=== PATIENT | male | born 1945 | race African-American/Black ===

== ENCOUNTER 2016-11-11 08:05 | Day surgery (SDC) | payer MEDICARE ==
[~2016-11-11 08:05] MED LIST: PROPOFOL INJ 200 MG/20 ML VIAL IV ONE
[2016-11-11 10:48] VITALS: BP 124/87
[2016-11-11] MEDS ORDERED: PROPOFOL INJ 200 MG/20 ML VIAL IV ONE (10:59)
--- NOTE | 2016-11-11 12:31 | Operative Report ---
Operative Report DATE OF SURGERY: 11/11/16 Operative Report: The risks benefits and alternatives of the procedure explained to the patient in detail and informed consent is obtained that GIF Olympus video scope was inserted into the patient's mouth and hypopharynx the esophagus is identified intubated and insufflated the scope was then advanced through the esophagus stomach and duodenum retroflexion maneuver is done the esophagus stomach and first and second portions of the duodenum examined PREOPERATIVE DIAGNOSIS: Known history of Noble's esophagus with dysplasia. Hiatal hernia. Gastric polyp. POSTOPERATIVE DIAGNOSIS: Inflammatory gastric polyp removed via snare polypectomy. Several areas of Noble's esophagus that is ablated. Hiatal hernia. OPERATION: EGD with ablation. EGD with snare polypectomy SURGEON: EAGLE WING ANESTHESIA: LMAC TISSUE REMOVED OR ALTERED: Gastric polyp removed. COMPLICATIONS: None. ESTIMATED BLOOD LOSS: none. INTRAOPERATIVE FINDINGS: Large hiatal hernia. Noble's that require ablation. Gastric polypectomy of the polyp. PROCEDURE: Patient tolerated the procedure well. No immediate postprocedure complications are noted. Patient is discharged in good condition. He will need a follow-up endoscopy in 6 weeks to document eradication of his Noble's. He is instructed to go the emergency room to any further problems or questions. He does have a 2-3 follow-up to discuss findings. Date of discharge 11/11/2016. Discharge diet: Regular. Discharge activity: Regular. He may potentially require surgery for his hiatal hernia.
== END 2016-11-11 10:50 | disposition home or self-care (01) ==
LOC: END 08:05
PROVIDERS: ATTEND Internal Medicine Gastroenterology
PROC: 0DB68ZX Excision of Stomach, Via Natural or Artificial Opening Endoscopic, Diagnostic (ICD-10-PCS; principal; 2016-11-11 10:00)
PROC: 0D558ZZ Destruction of Esophagus, Via Natural or Artificial Opening Endoscopic (ICD-10-PCS; 2016-11-11 10:00)
DX: K22.719 Barrett's esophagus with dysplasia, unspecified (principal); K44.9 Diaphragmatic hernia without obstruction or gangrene; K21.9 Gastro-esophageal reflux disease without esophagitis; E78.5 Hyperlipidemia, unspecified; I10 Essential (primary) hypertension; E03.9 Hypothyroidism, unspecified; M10.9 Gout, unspecified; D64.9 Anemia, unspecified; J30.2 Other seasonal allergic rhinitis; Z88.0 Allergy status to penicillin; Z88.6 Allergy status to analgesic agent; Z79.899 Other long term (current) drug therapy
CPT/HCPCS: 43270; 88305 ×2; J2704; 43251; 740

== ENCOUNTER → 2017-02-08 | Outpatient (CLI) | payer MEDICARE ==
[2017-02-08 09:28] LABS: ALANINE AMINOTRANSFERASE 22 U/L (21-72); ALBUMIN 4.3 g/dL (3.5-5.0); ALKALINE PHOSPHATASE 81 U/L (38-126); ASPARTATE AMINO TRANSFERASE 24 U/L (17-59); BILIRUBIN,DIRECT 0.2 mg/dL (0.0-0.4); BILIRUBIN,TOTAL 0.6 mg/dL (0.2-1.3); CHOLESTEROL 150.99 mg/dL (0-200); Direct HDL 44 mg/dL (>40); TOTAL PROTEIN 8.2 g/dL (6.3-8.2); TRIGLYCERIDES 132 mg/dL (<150)
[2017-02-08 09:39] LABS: DIRECT LDL 53 mg/dL (<100)
== END ==
LOC: OD 08:18
PROVIDERS: ATTEND Specialist
DX: R00.2 Palpitations (principal); R01.1 Cardiac murmur, unspecified; I10 Essential (primary) hypertension; E78.5 Hyperlipidemia, unspecified; R55 Syncope and collapse; Z79.899 Other long term (current) drug therapy; K21.9 Gastro-esophageal reflux disease without esophagitis; E03.9 Hypothyroidism, unspecified; I36.1 Nonrheumatic tricuspid (valve) insufficiency; I27.2 Other secondary pulmonary hypertension; Z86.79 Personal history of other diseases of the circulatory system
CPT/HCPCS: 36415; 80061; 80076

== ENCOUNTER 2017-05-31 10:15 | Day surgery (SDC) | payer MEDICARE ==
[2017-05-31 13:11] VITALS: BP 128/88
--- NOTE | 2017-05-31 13:55 | Operative Report ---
Operative Report DATE OF SURGERY: 05/31/17 Operative Report: The risks benefits and alternatives of the procedure explained to the patient in detail and informed consent is obtained. A GIF Olympus video scope was inserted into the patient's mouth and hypopharynx, the esophagus is identified intubated and insufflated, the scope was then advanced through the esophagus stomach and duodenum, retroflexion maneuver is done, the esophagus stomach and first and second portions of the duodenum examined PREOPERATIVE DIAGNOSIS: Gastroesophageal reflux disease. Previous removal of gastric polyp. No history of Noble's esophagus. POSTOPERATIVE DIAGNOSIS: Gastritis status post biopsy. Hiatal hernia. Noble' s esophagus status post treatment with HALO ablative therapy. OPERATION: EGD with ablation. EGD with biopsy SURGEON: EAGLE WING ANESTHESIA: LMAC TISSUE REMOVED OR ALTERED: As described above. COMPLICATIONS: None. ESTIMATED BLOOD LOSS: None. INTRAOPERATIVE FINDINGS: As described above. PROCEDURE: Patient tolerated the procedure well. No immediate postprocedure complications are noted. Patient discharged in good condition. Discharge date 05/31/2017. Discharge diet: Regular. Discharge activity: Regular. 2-3 week follow-up to discuss findings. Patient is instructed to call the office or proceed to the emergency room should there be any further problems or questions. We will wait on pathology.
== END 2017-05-31 13:15 | disposition home or self-care (01) ==
LOC: END 10:15
PROVIDERS: ATTEND Internal Medicine Gastroenterology
PROC: 0DB68ZX Excision of Stomach, Via Natural or Artificial Opening Endoscopic, Diagnostic (ICD-10-PCS; principal; 2017-05-31 13:30)
PROC: 0D558ZZ Destruction of Esophagus, Via Natural or Artificial Opening Endoscopic (ICD-10-PCS; 2017-05-31 13:30)
DX: K22.719 Barrett's esophagus with dysplasia, unspecified (principal); K21.9 Gastro-esophageal reflux disease without esophagitis; K29.50 Unspecified chronic gastritis without bleeding; B96.81 Helicobacter pylori [H. pylori] as the cause of diseases classified elsewhere; K44.9 Diaphragmatic hernia without obstruction or gangrene; I10 Essential (primary) hypertension; E78.5 Hyperlipidemia, unspecified; E03.9 Hypothyroidism, unspecified; D64.9 Anemia, unspecified; M10.9 Gout, unspecified; Z79.899 Other long term (current) drug therapy
CPT/HCPCS: 43270; 43239; 88342 ×2; 88305 ×2; J2704; 740

== ENCOUNTER → 2017-06-18 | Outpatient (CLI) | payer MEDICARE ==
[2017-06-18 08:28] LABS: ALANINE AMINOTRANSFERASE 25 U/L (21-72); ALBUMIN 4.3 g/dL (3.5-5.0); ALKALINE PHOSPHATASE 78 U/L (38-126); ASPARTATE AMINO TRANSFERASE 21 U/L (17-59); BILIRUBIN,DIRECT 0.3 mg/dL (0.0-0.4); BILIRUBIN,TOTAL 0.6 mg/dL (0.2-1.3); CHOLESTEROL 129.38 mg/dL (0-200); Direct HDL 44 mg/dL (>40); TOTAL PROTEIN 8.4 g/dL (6.3-8.2); TRIGLYCERIDES 110 mg/dL (<150)
[2017-06-18 08:39] LABS: DIRECT LDL 43 mg/dL (<100)
== END ==
LOC: OD 07:10
PROVIDERS: ATTEND Specialist
DX: R00.2 Palpitations (principal); R01.1 Cardiac murmur, unspecified; I10 Essential (primary) hypertension; Z86.79 Personal history of other diseases of the circulatory system; R55 Syncope and collapse; E78.5 Hyperlipidemia, unspecified; K21.9 Gastro-esophageal reflux disease without esophagitis; E03.9 Hypothyroidism, unspecified; I27.2 Other secondary pulmonary hypertension; I36.1 Nonrheumatic tricuspid (valve) insufficiency; Z79.899 Other long term (current) drug therapy
CPT/HCPCS: 36415; 80061; 80076

== ENCOUNTER → 2018-01-19 | Outpatient (CLI) | payer MEDICARE ==
[2018-01-19 08:33] LABS: ALANINE AMINOTRANSFERASE 29 U/L (21-72); ALBUMIN 4.4 g/dL (3.5-5.0); ALKALINE PHOSPHATASE 75 U/L (38-126); ASPARTATE AMINO TRANSFERASE 23 U/L (17-59); BILIRUBIN,DIRECT 0.2 mg/dL (0.0-0.4); BILIRUBIN,TOTAL 0.4 mg/dL (0.2-1.3); CHOLESTEROL 135.63 mg/dL (0-200); TOTAL PROTEIN 8.4 g/dL (6.3-8.2); TRIGLYCERIDES 112 mg/dL (<150)
[2018-01-19 08:45] LABS: DIRECT LDL 49 mg/dL (<100)
== END ==
LOC: OD 07:30
PROVIDERS: ATTEND Specialist
DX: E78.5 Hyperlipidemia, unspecified (principal); I10 Essential (primary) hypertension; R00.2 Palpitations; R01.1 Cardiac murmur, unspecified; R55 Syncope and collapse; E03.9 Hypothyroidism, unspecified; K21.9 Gastro-esophageal reflux disease without esophagitis; I36.1 Nonrheumatic tricuspid (valve) insufficiency; Z79.899 Other long term (current) drug therapy; Z86.79 Personal history of other diseases of the circulatory system
CPT/HCPCS: 36415; 80061; 80076

== ENCOUNTER → 2018-05-20 | Outpatient (CLI) | payer MEDICARE ==
--- NOTE | 2018-05-20 11:15 | RADIOLOGY REPORT (SQ) ---
EXAM DESCRIPTION: CHEST PA/LATERAL COMPLETED DATE/TIME: 05/20/2018 11:04 am REASON FOR STUDY: BODY MASS INDEX (BMI) 25.0-25.9, ADULT COMPARISON: None. EXAM PARAMETERS: NUMBER OF VIEWS: two views TECHNIQUE: Digital Frontal and Lateral radiographic views of the chest acquired. RADIATION DOSE: NA LIMITATIONS: none FINDINGS: LUNGS AND PLEURA: Fairly extensive bilateral airspace densities are identified left greate r than right most consistent with pneumonic infiltrates. I would recommend followup films to complet e clearing to exclude an underlying process. No pleural effusions are identified. No pneumothorax i s seen. MEDIASTINUM AND HILAR STRUCTURES: No masses or contour abnormalities. HEART AND VASCULAR STRUCTURES: Cardiac silhouette is within normal limits for size. Tortuous thoraci c aorta is identified. BONES: No acute findings. HARDWARE: None in the chest. OTHER: No other significant finding. IMPRESSION: Bilateral airspace densities as noted above most consistent with pneumonic infiltrates. I would recommend followup films to complete clearing to exclude an underlying process. Other findi ngs as noted above. TECHNICAL DOCUMENTATION: JOB ID: [id number] [employer]- All Rights Reserved Reading location - IP/workstation name: [email or web address]
== END ==
LOC: OD 10:45
PROVIDERS: ATTEND Internal Medicine
DX: J98.4 Other disorders of lung (principal); Z68.25 Body mass index [BMI] 25.0-25.9, adult
CPT/HCPCS: 71046

== ENCOUNTER → 2018-05-21 | Outpatient (CLI) | payer MEDICARE ==
[2018-05-21 09:36] LABS: ABSOLUTE EOSINOPHILS # (AUTO) 0.3 10^3/uL (0.0-0.6); ABSOLUTE LYMPHOCYTES (AUTO) 2.6 10^3/uL (0.5-4.7); ABSOLUTE MONOCYTES (AUTO) 0.7 10^3/uL (0.1-1.4); ABSOLUTE NEUT (AUTO) 2.9 10^3/uL (1.7-8.2); BASOPHILS % (AUTO) 0.6 % (0-2); EOSINOPHILS % (AUTO) 3.9 % (0-6); HEMATOCRIT 38.5 % (37.9-51.0); HEMOGLOBIN 12.9 g/dL (13.5-17.0); LYMPHOCYTES % (AUTO) 40.1 % (13-45); MEAN CORPUSCULAR HEMOGLOBIN 26.5 pg (27.0-33.4); MEAN CORPUSCULAR HGB CONC 33.5 g/dL (32.0-36.0); MEAN CORPUSCULAR VOLUME 79 fl (80-97); MONOCYTES % (AUTO) 11.4 % (3-13); PLATELET COUNT 200 10^3/uL (150-450); RED BLOOD COUNT 4.85 10^6/uL (4.35-5.55); RED CELL DISTRIBUTION WIDTH 15.1 % (11.5-14.0); TOTAL CELLS COUNTED % (AUTO) 100 %; WHITE BLOOD COUNT 6.6 10^3/uL (4.0-10.5)
[2018-05-21 09:43] LABS: ALANINE AMINOTRANSFERASE 21 U/L (21-72); ALBUMIN 4.3 g/dL (3.5-5.0); ALKALINE PHOSPHATASE 73 U/L (38-126); ANION GAP 15 (5-19); ASPARTATE AMINO TRANSFERASE 23 U/L (17-59); BILIRUBIN,DIRECT 0.4 mg/dL (0.0-0.4); BILIRUBIN,TOTAL 0.6 mg/dL (0.2-1.3); BLOOD UREA NITROGEN 13 mg/dL (7-20); CALCIUM 9.5 mg/dL (8.4-10.2); CARBON DIOXIDE 26 mmol/L (22-30); CHLORIDE 106 mmol/L (98-107); CHOLESTEROL 133.55 mg/dL (0-200); GLUCOSE 97 mg/dL (75-110); POTASSIUM 4.4 mmol/L (3.6-5.0); SODIUM 147.2 mmol/L (137-145); TOTAL PROTEIN 9.1 g/dL (6.3-8.2); TRIGLYCERIDES 120 mg/dL (<150); URIC ACID 8.1 mg/dL (3.5-8.5)
[2018-05-21 09:54] LABS: DIRECT LDL 45 mg/dL (<100)
== END ==
LOC: LAB 08:19
PROVIDERS: ATTEND Internal Medicine
DX: I10 Essential (primary) hypertension (principal); R06.09 Other forms of dyspnea; E03.9 Hypothyroidism, unspecified; M1A.0720 Idiopathic chronic gout, left ankle and foot, without tophus (tophi); E78.2 Mixed hyperlipidemia; Z68.25 Body mass index [BMI] 25.0-25.9, adult
CPT/HCPCS: 36415; 80053; 80061; 84550; 85025

== ENCOUNTER 2018-05-31 15:44 | Inpatient (IN) | payer MEDICARE ==
--- NOTE | 2018-05-31 17:42 | ER Document Report ---
ED Medical Screen (RME) - General Chief Complaint: Breathing Difficulty Stated Complaint: DIRECT ADMIT/PNEUMONIA Time Seen by Provider: 05/31/18 17:40 Notes: Patient has been referred here for admission to treat pneumonia. Patient's primary care provider, Dr. Maza, has written orders for this patient. Patient says that he has been on outpatient antibiotic therapy for pneumonia and it has not been working. Patient's chest x-ray here today shows continuing bilateral pneumonia in all lobes, but it does look improved compared to the chest x-ray of 2 weeks ago. Patient seems to be tolerating his illness as well as can be expected with a room air O2 sat of 94%. TRAVEL OUTSIDE OF THE [place] IN LAST 30 DAYS: No - Related Data Allergies/Adverse Reactions: aspirin [Aspirin] Allergy (Severe, Verified 05/31/18 15:45) Hives Penicillins Allergy (Severe, Verified 05/31/18 15:45) Hives pollen extracts Allergy (Intermediate, Verified 05/31/18 15:45) RUNNY NOSE,ITCHY EYES, SORE THROAT. 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
[2018-05-31] MEDS ORDERED: ACETAMINOPHEN 325 MG TABLET PO PRN (18:09)
[2018-05-31 18:14] LABS: ABSOLUTE BASOPHILS # (AUTO) 0.1 10^3/uL (0.0-0.2); ABSOLUTE EOSINOPHILS # (AUTO) 0.2 10^3/uL (0.0-0.6); ABSOLUTE MONOCYTES (AUTO) 0.7 10^3/uL (0.1-1.4); BASOPHILS % (AUTO) 0.9 % (0-2); EOSINOPHILS % (AUTO) 2.9 % (0-6); HEMATOCRIT 42.1 % (37.9-51.0); HEMOGLOBIN 13.9 g/dL (13.5-17.0); LYMPHOCYTES % (AUTO) 28.5 % (13-45); MEAN CORPUSCULAR HEMOGLOBIN 26.4 pg (27.0-33.4); MEAN CORPUSCULAR HGB CONC 33.1 g/dL (32.0-36.0); MEAN CORPUSCULAR VOLUME 80 fl (80-97); MONOCYTES % (AUTO) 9.9 % (3-13); PLATELET COUNT 181 10^3/uL (150-450); RED BLOOD COUNT 5.28 10^6/uL (4.35-5.55); RED CELL DISTRIBUTION WIDTH 15.3 % (11.5-14.0); SEGMENTED NEUTROPHILS % (AUTO) 57.8 % (42-78); TOTAL CELLS COUNTED % (AUTO) 100 %; WHITE BLOOD COUNT 6.9 10^3/uL (4.0-10.5)
--- NOTE | 2018-05-31 18:18 | RADIOLOGY REPORT (SQ) ---
EXAM DESCRIPTION: CHEST 2 VIEWS COMPLETED DATE/TIME: 05/31/2018 6:05 pm REASON FOR STUDY: admit; PNA COMPARISON: 05/20/2018 EXAM PARAMETERS: NUMBER OF VIEWS: two views TECHNIQUE: Digital Frontal and Lateral radiographic views of the chest acquired. RADIATION DOSE: NA LIMITATIONS: none FINDINGS: LUNGS AND PLEURA: Mild improved aeration in both upper lobe patchy airspace opacities whic h still persist. No pleural effusion or pneumothorax. MEDIASTINUM AND HILAR STRUCTURES: Stable. HEART AND VASCULAR STRUCTURES: Stable. BONES: No acute findings. HARDWARE: None in the chest. OTHER: No other significant finding. IMPRESSION: Mild improved aeration in both upper lobe patchy airspace opacities which still persist. No pleural effusion or pneumothorax. TECHNICAL DOCUMENTATION: JOB ID: [id number] [employer]- All Rights Reserved Reading location - IP/workstation name: [email or web address]
[2018-05-31 18:37] LABS: ALANINE AMINOTRANSFERASE 8 U/L (21-72); ALBUMIN 4.7 g/dL (3.5-5.0); ALKALINE PHOSPHATASE 75 U/L (38-126); ANION GAP 15 (5-19); ASPARTATE AMINO TRANSFERASE 31 U/L (17-59); BILIRUBIN,DIRECT 0.4 mg/dL (0.0-0.4); BILIRUBIN,TOTAL 0.7 mg/dL (0.2-1.3); BLOOD UREA NITROGEN 16 mg/dL (7-20); CALCIUM 9.7 mg/dL (8.4-10.2); CARBON DIOXIDE 25 mmol/L (22-30); CHLORIDE 104 mmol/L (98-107); GLUCOSE 98 mg/dL (75-110); POTASSIUM 4.9 mmol/L (3.6-5.0); SODIUM 143.9 mmol/L (137-145); TOTAL PROTEIN 10.2 g/dL (6.3-8.2)
[2018-05-31] MEDS: IMIPENEM/CILASTATIN SODIUM 1,000 MG in NORMAL SALINE 250 ML IV SCH (18:51)
--- NOTE | 2018-05-31 19:37 | ER Document Report ---
ED General - General Chief Complaint: Breathing Difficulty Stated Complaint: DIRECT ADMIT/PNEUMONIA Time Seen by Provider: 05/31/18 17:40 Mode of Arrival: Ambulatory Information source: Patient Notes: 73-year-old man who was referred to the emergency room for worsening shortness of breath in the setting of outpatient pneumonia and failed outpatient therapy. TRAVEL OUTSIDE OF THE [place] IN LAST 30 DAYS: No - HPI Onset: Other - Past few weeks Onset/Duration: Gradual Quality of pain: No pain Severity: None Pain Level: Denies Associated symptoms: Shortness of breath Exacerbated by: Denies Relieved by: Denies Similar symptoms previously: Yes Recently seen / treated by doctor: Yes - Related Data Allergies/Adverse Reactions: aspirin [Aspirin] Allergy (Severe, Verified 05/31/18 21:20) Hives Penicillins Allergy (Severe, Verified 05/31/18 21:20) Hives pollen extracts Allergy (Intermediate, Verified 05/31/18 21:20) RUNNY NOSE,ITCHY EYES, SORE THROAT. latex Allergy (Mild, Verified 05/31/18 21:20) RASH Past Medical History - General Information source: Patient - Social History Smoking Status: Never Smoker Cigarette use (# per day): No Chew tobacco use (# tins/day): No Frequency of alcohol use: None Drug Abuse: None Lives with: Spouse/Significant other Family History: None Patient has suicidal ideation: No Patient has homicidal ideation: No - Past Medical History Cardiac Medical History: Reports: Hx Hypertension Denies: Hx Coronary Artery Disease, Hx Heart Attack Pulmonary Medical History: Reports: Hx Pneumonia - 1998, present Denies: Hx Asthma, Hx Bronchitis, Hx COPD Neurological Medical History: Denies: Hx Cerebrovascular Accident, Hx Seizures Renal/ Medical History: Denies: Hx Peritoneal Dialysis Musculoskeletal Medical History: 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 - Immunizations Hx Diphtheria, Pertussis, Tetanus Vaccination: Yes Hx Pneumococcal Vaccination: 11/08/13 Review of Systems - Review of Systems Constitutional: Malaise, Weakness EENT: No symptoms reported Cardiovascular: No symptoms reported Respiratory: See HPI Gastrointestinal: No symptoms reported Genitourinary: No symptoms reported Male Genitourinary: No symptoms reported Musculoskeletal: No symptoms reported Skin: No symptoms reported Hematologic/Lymphatic: No symptoms reported Neurological/Psychological: No symptoms reported Physical Exam - Vital signs Vitals: Temp Pulse Resp BP Pulse Ox 99.0 F 94 20 116/84 95 05/31/18 16:04 05/31/18 16:04 05/31/18 16:04 05/31/18 16:04 05/31/18 16:04 Notes: Physical exam: GENERAL: 33-year-old man, alert and oriented 3, oxygen saturation 94%. HEAD: Atraumatic, normocephalic. EYES: Pupils equal round and reactive to light, extraocular movements intact, sclera anicteric, conjunctiva are normal. ENT: TMs normal, nares patent, oropharynx clear without exudates. Moist mucous membranes. NECK: Normal range of motion, supple without obvious mass or JVD. LUNGS: Scattered rhonchi bilaterally HEART: Regular rate and rhythm without murmurs, rubs or gallops. ABDOMEN: Soft, normoactive bowel sounds. No tenderness to palpation. No guarding, no rebound. No masses appreciated. EXTREMITIES: Normal range of motion, no pitting or edema. No clubbing or cyanosis. NEUROLOGICAL: Cranial nerves II through XII grossly intact. Normal speech, moving all extremities. PSYCH: Normal mood, normal affect. SKIN: Warm, Dry, normal turgor, no rashes or lesions noted. Course - Re-evaluation Re-evalutation: 05/31/18 19:36 Note: Patient was referred to the emergency room. Given the lack of rooms she was put in the waiting room waiting for an inpatient bed that may take an extended period of time. Given his failed treatment of outpatient management for pneumonia, he was brought into the emergency and I have evaluated the patient. He is currently receiving antibiotics (imipenem/Cilastin) and we are waiting on a bed. - Vital Signs Vital signs: Temp Pulse Resp BP Pulse Ox 99.0 F 94 26 H 136/94 H 96 05/31/18 16:04 05/31/18 16:04 05/31/18 22:02 05/31/18 21:01 05/31/18 21:01 - Laboratory Result Diagrams: 05/31/18 17:55 05/31/18 17:55 Laboratory results interpreted by me: 05/31/18 05/31/18 17:55 17:55 MCH 26.4 L RDW 15.3 H ALT 8 L Total Protein 10.2 H Discharge - Discharge Clinical Impression: Pneumonia Condition: Stable Disposition: ADMITTED INPATIENT Admitting Provider: Ole Unit Admitted: Telemetry
[2018-05-31] MEDS: IPRATROPIUM/ALBUTEROL 0.5-2.5 MG/3 ML AMPUL NEB SCH (20:36)
[2018-06-01] MEDS: IPRATROPIUM/ALBUTEROL 0.5-2.5 MG/3 ML AMPUL NEB SCH ×4 (02:00→19:55)
[2018-06-01] MEDS: IMIPENEM/CILASTATIN SODIUM 1,000 MG in NORMAL SALINE 250 ML IV SCH ×3 (03:02→19:43)
[2018-06-01] MEDS: LEVOTHYROXINE SODIUM 0.1 MG TABLET PO SCH (05:56)
[2018-06-01] MEDS: LANSOPRAZOLE 30 MG TAB.RAP.DR PO SCH (05:56)
[2018-06-01] MEDS: ENOXAPARIN SODIUM INJ 30 MG/0.3 ML DISP.SYRIN SUBCUT SCH (10:26)
[2018-06-01] MEDS: LISINOPRIL 5 MG TABLET PO SCH (10:26)
[2018-06-01] MEDS: POTASSIUM CHLORIDE 10 MEQ CAPSULE.ER PO SCH (10:26)
[2018-06-01] MEDS: FUROSEMIDE 40 MG TABLET PO SCH (10:27)
[2018-06-01] MEDS: DILTIAZEM HCL 180 MG CAPSULE.CR PO SCH (10:30)
--- NOTE | 2018-06-01 11:46 | PDOC H&P ---
History of Present Illness Admission Date/PCP: 05/31/18 19:39 DAMON MAZA MD 725/18 Patient complains of: Patient comes in progressive shortness of breath, cough yellowish phlegm night sweats orthopnea, positive sputum for Pseudomonas and chest x-ray with bilateral pneumonia. History of Present Illness: NETTE PRINGLE is a 73 year old male Patient comes in 1 month progressive shortness of breath, cough, night sweats, chills purulent sputum. He was seen in my office chest x-ray was shown bilateral pneumonic infiltrates he was started on Levaquin. Results of the sputum showed Pseudomonas resistant to Levaquin Cipro Bactrim only sensitive to IV medications subsequently he was admitted after discussion with local ends breakage clerk for further treatment. Past Medical History Cardiac Medical History: Reports: Hypertension Denies: Coronary Artery Disease, Myocardial Infarction Pulmonary Medical History: Reports: Pneumonia - 1998, present Denies: Asthma, Bronchitis, Chronic Obstructive Pulmonary Disease (COPD) Neurological Medical History: Denies: Seizures Endocrine Medical History: Reports: Hypothyroidism GI Medical History: Reports: Gastroesophageal Reflux Disease Musculoskeltal Medical History: Reports: Arthritis - left wrist & shoulder, Gout Hematology: Denies: Anemia Past Surgical History Past Surgical History: Reports: Other Social History Lives with: Spouse/Significant other Smoking Status: Never Smoker Frequency of Alcohol Use: None Hx Recreational Drug Use: No Drugs: None Hx Prescription Drug Abuse: No Family History Family History: None Parental Family History Reviewed: Yes Children Family History Reviewed: Yes Sibling(s) Family History Reviewed.: Yes Medication/Allergy Home Medications: Ergocalciferol (Vitamin D2) [Vitamin D2] 50,000 unit PO MO@1000 04/18/14 Omeprazole 40 mg PO DAILY 04/18/14 Diltiazem HCl [Diltiazem ER] 180 mg PO DAILY 11/11/16 Albuterol Sulfate [Proair Hfa Inhalation Aerosol 8.5 gm Mdi] 2 puff IH Q6HP PRN 05/31/18 Furosemide [Lasix 20 mg Tablet] 20 mg PO QAM 05/31/18 Levothyroxine Sodium [Synthroid 0.1 mg Tablet] 0.1 mg PO DAILY 05/31/18 Lisinopril [Prinivil 5 mg Tablet] 5 mg PO DAILY 05/31/18 Loratadine [Claritin 10 mg Tablet] 10 mg PO DAILYP PRN 05/31/18 Potassium Chloride 10 meq PO BID 05/31/18 Simvastatin [Zocor 10 mg Tablet] 10 mg PO QPM 05/31/18 Allergies/Adverse Reactions: aspirin [Aspirin] Allergy (Severe, Verified 05/31/18 21:20) Hives Penicillins Allergy (Severe, Verified 05/31/18 21:20) Hives pollen extracts Allergy (Intermediate, Verified 05/31/18 21:20) RUNNY NOSE,ITCHY EYES, SORE THROAT. latex Allergy (Mild, Verified 05/31/18 21:20) RASH Review of Systems Constitutional: PRESENT: as per HPI, chills, fever(s), night sweats Respiratory: PRESENT: cough, dyspnea, sputum Physical Exam Vital Signs: Temp Pulse Resp BP Pulse Ox 97.7 F 69 18 140/97 H 95 06/01/18 07:34 06/01/18 08:19 06/01/18 08:19 06/01/18 07:34 06/01/18 08:19 Intake & Output 05/31/18 06/01/18 06/02/18 06:59 06:59 06:59 Intake Total 500 Balance 500 Weight 85.3 kg General appearance: PRESENT: no acute distress Head exam: PRESENT: atraumatic, normocephalic Eye exam: PRESENT: conjunctiva pink Ear exam: PRESENT: normal external ear exam Mouth exam: PRESENT: moist Throat exam: PRESENT: post pharyngeal erythema Neck exam: PRESENT: full ROM Respiratory exam: PRESENT: crackles, decreased breath sounds, rhonchi Cardiovascular exam: PRESENT: RRR, systolic murmur Murmur grade: 4 Pulses: PRESENT: normal carotid pulses, normal dorsalis pedis pul GI/Abdominal exam: PRESENT: normal bowel sounds, soft. ABSENT: distended, guarding, mass, organolmegaly, rebound, tenderness Rectal exam: PRESENT: deferred Extremities exam: PRESENT: full ROM Musculoskeletal exam: PRESENT: ambulatory, full ROM, normal inspection Neurological exam: PRESENT: alert, altered, awake, oriented to person, oriented to place, oriented to time, oriented to situation, reflexes normal, CN II-XII grossly intact, normal gait Psychiatric exam: PRESENT: normal mood Skin exam: PRESENT: warm Results Impressions: Chest X-Ray 05/31/18 00:00 IMPRESSION: Mild improved aeration in both upper lobe patchy airspace opacities which still persist. No pleural effusion or pneumothorax. Status: Image reviewed by me Assessment & Plan - Diagnosis (1) Pneumonia Qualifiers: Pneumonia type: due to Pseudomonas Laterality: bilateral Is this a current diagnosis for this admission?: Yes Plan: Continue on supplemental oxygen, DuoNeb nebulizer, Primaxin 1 g IV every 8 incentive spirometry we will recheck a chest x-ray in 48 hours, check CBC for the presence of leukocytosis. (2) Hypertension Qualifiers: Hypertension type: essential hypertension Qualified Code(s): I10 - Essential (primary) hypertension Is this a current diagnosis for this admission?: Yes Plan: Continue on home antihypertensives, will monitor his BMP 7 daily as he is in a higher dose of Lasix. (3) Hypothyroidism Is this a current diagnosis for this admission?: Yes Plan: Continue on home thyroid medication patient is on GI and DVT prophylaxis.
[2018-06-02] MEDS: IPRATROPIUM/ALBUTEROL 0.5-2.5 MG/3 ML AMPUL NEB SCH ×4 (01:51→20:34)
[2018-06-02] MEDS: IMIPENEM/CILASTATIN SODIUM 1,000 MG in NORMAL SALINE 250 ML IV SCH ×3 (04:01→18:12)
[2018-06-02 06:08] LABS: ABSOLUTE EOSINOPHILS # (AUTO) 0.2 10^3/uL (0.0-0.6); ABSOLUTE LYMPHOCYTES (AUTO) 1.4 10^3/uL (0.5-4.7); ABSOLUTE MONOCYTES (AUTO) 0.8 10^3/uL (0.1-1.4); ABSOLUTE NEUT (AUTO) 3.7 10^3/uL (1.7-8.2); BASOPHILS % (AUTO) 0.5 % (0-2); EOSINOPHILS % (AUTO) 2.9 % (0-6); HEMATOCRIT 39.4 % (37.9-51.0); HEMOGLOBIN 12.9 g/dL (13.5-17.0); LYMPHOCYTES % (AUTO) 22.3 % (13-45); MEAN CORPUSCULAR HEMOGLOBIN 25.9 pg (27.0-33.4); MEAN CORPUSCULAR HGB CONC 32.7 g/dL (32.0-36.0); MEAN CORPUSCULAR VOLUME 79 fl (80-97); MONOCYTES % (AUTO) 13.7 % (3-13); PLATELET COUNT 132 10^3/uL (150-450); RED BLOOD COUNT 4.97 10^6/uL (4.35-5.55); RED CELL DISTRIBUTION WIDTH 15.2 % (11.5-14.0); SEGMENTED NEUTROPHILS % (AUTO) 60.6 % (42-78); TOTAL CELLS COUNTED % (AUTO) 100 %; WHITE BLOOD COUNT 6.1 10^3/uL (4.0-10.5)
[2018-06-02] MEDS: LEVOTHYROXINE SODIUM 0.1 MG TABLET PO SCH (06:20)
[2018-06-02] MEDS: LANSOPRAZOLE 30 MG TAB.RAP.DR PO SCH (06:20)
[2018-06-02 06:38] LABS: ANION GAP 15 (5-19); BLOOD UREA NITROGEN 13 mg/dL (7-20); CALCIUM 9.5 mg/dL (8.4-10.2); CARBON DIOXIDE 25 mmol/L (22-30); CHLORIDE 102 mmol/L (98-107); GLUCOSE 87 mg/dL (75-110); POTASSIUM 3.7 mmol/L (3.6-5.0); SODIUM 142.4 mmol/L (137-145)
[2018-06-02] MEDS: POTASSIUM CHLORIDE 10 MEQ CAPSULE.ER PO SCH (11:17)
[2018-06-02] MEDS: ENOXAPARIN SODIUM INJ 30 MG/0.3 ML DISP.SYRIN SUBCUT SCH (11:17)
[2018-06-02] MEDS ORDERED: NORMAL SALINE 10 ML SDV (AFTER EACH USE) IV PRN (11:31)
--- NOTE | 2018-06-02 12:25 | RADIOLOGY REPORT (SQ) ---
EXAM DESCRIPTION: PICC INSERTION; FLUORO/CV PLACEMENT; U/S GUIDE FOR VASCULAR ACCESS COMPLETED DATE/TIME: 06/02/2018 11:14 am REASON FOR STUDY: outpatient abx treatment; ABX COMPARISON: None. FLUOROSCOPY TIME: 0.5 minutes. 1 images saved to PACS. TECHNIQUE: Fluoroscopic and ultrasound guided PICC placement. LIMITATIONS: None. PROCEDURE: After written consent and assessment were obtained, the patient was brought into the fluo roscopy room and place supine on the table. Ultrasound evaluation of potential access sites were perf ormed. After successfully identifying a patent left basilic vein, the left arm was prepped and draped in a sterile fashion along with the ultrasound probe. The entry site was anesthetized with 1% lidoca ine. A 21 gauge 7 cm needle was advanced through the skin and into the basilic vein under live ultras ound guidance. An ultrasound image was saved to PACS confirming access site. A .018 guide wire was then inserted through the needle and into the venous system. The needle was the removed and an 11 jhoan de scalpel was used to make a 1cm skin incision. A 5 fr peel-away sheath was advanced over the wire and into the venous system. A measurement was then made using the existing wire and live fluoroscopic guidance. The wire was then removed and the trimmed. The PICC was advanced through the peel-away she ath and into the venous system. The peel-away sheath was removed and the catheter was adhered to the patients arm with a stat lock. The catheter was then aspirated and flushed and a sterile bandage was placed over the access site. A fluoroscopic spot image was saved to PACS confirming the catheter tip within the superior vena cava. IMPRESSION: SUCCESSFUL PLACEMENT OF A 5 FR DUAL LUMEN 44 CM PICC IN THE LEFT BASILIC VEIN. COMMENT: Patient medication list reviewed: Yes- Quality ID# [id number]:Eligible professional attests to doc umenting in the medical record they obtained, updated, or reviewed the patient's current medications. . Quality ID 145: Final reports for procedures using fluoroscopy that document radiation exposure elenita crys, or exposure time and number of fluorographic images (if radiation exposure indices are not avail able) Quality ID #76: The patient was prepped and draped using maximum sterile barrier technique including cap, mask, sterile gown, sterile gloves, a large sterile sheet, hand hygiene, and 2% Chlorhexidine fo r cutaneous antisepsis. When ultrasound is used, sterile ultrasound techniques are followed requiring sterile gel and sterile probes. TECHNICAL DOCUMENTATION: JOB ID: [id number] [employer]- All Rights Reserved rev-03/25 Reading location - IP/workstation name: [email or web address]
--- NOTE | 2018-06-02 12:25 | RADIOLOGY REPORT (SQ) ---
EXAM DESCRIPTION: PICC INSERTION; FLUORO/CV PLACEMENT; U/S GUIDE FOR VASCULAR ACCESS COMPLETED DATE/TIME: 06/02/2018 11:14 am REASON FOR STUDY: outpatient abx treatment; ABX COMPARISON: None. FLUOROSCOPY TIME: 0.5 minutes. 1 images saved to PACS. TECHNIQUE: Fluoroscopic and ultrasound guided PICC placement. LIMITATIONS: None. PROCEDURE: After written consent and assessment were obtained, the patient was brought into the fluo roscopy room and place supine on the table. Ultrasound evaluation of potential access sites were perf ormed. After successfully identifying a patent left basilic vein, the left arm was prepped and draped in a sterile fashion along with the ultrasound probe. The entry site was anesthetized with 1% lidoca ine. A 21 gauge 7 cm needle was advanced through the skin and into the basilic vein under live ultras ound guidance. An ultrasound image was saved to PACS confirming access site. A .018 guide wire was then inserted through the needle and into the venous system. The needle was the removed and an 11 jhoan de scalpel was used to make a 1cm skin incision. A 5 fr peel-away sheath was advanced over the wire and into the venous system. A measurement was then made using the existing wire and live fluoroscopic guidance. The wire was then removed and the trimmed. The PICC was advanced through the peel-away she ath and into the venous system. The peel-away sheath was removed and the catheter was adhered to the patients arm with a stat lock. The catheter was then aspirated and flushed and a sterile bandage was placed over the access site. A fluoroscopic spot image was saved to PACS confirming the catheter tip within the superior vena cava. IMPRESSION: SUCCESSFUL PLACEMENT OF A 5 FR DUAL LUMEN 44 CM PICC IN THE LEFT BASILIC VEIN. COMMENT: Patient medication list reviewed: Yes- Quality ID# [id number]:Eligible professional attests to doc umenting in the medical record they obtained, updated, or reviewed the patient's current medications. . Quality ID 145: Final reports for procedures using fluoroscopy that document radiation exposure elenita crys, or exposure time and number of fluorographic images (if radiation exposure indices are not avail able) Quality ID #76: The patient was prepped and draped using maximum sterile barrier technique including cap, mask, sterile gown, sterile gloves, a large sterile sheet, hand hygiene, and 2% Chlorhexidine fo r cutaneous antisepsis. When ultrasound is used, sterile ultrasound techniques are followed requiring sterile gel and sterile probes. TECHNICAL DOCUMENTATION: JOB ID: [id number] [email or web address]- All Rights Reserved rev-03/25 Reading location - IP/workstation name: [email or web address]
[2018-06-02] MEDS: FUROSEMIDE 40 MG TABLET PO SCH (13:47)
[2018-06-02] MEDS: LISINOPRIL 5 MG TABLET PO SCH (13:47)
[2018-06-02] MEDS: DILTIAZEM HCL 180 MG CAPSULE.CR PO SCH (13:47)
--- NOTE | 2018-06-02 16:15 | PDOC PROGRESS REPORT ---
Subjective Progress Note for:: 06/02/18 Subjective:: Patient is feeling better Reason For Visit: PNEUMONIA Physical Exam Vital Signs: Temp Pulse Resp BP Pulse Ox 98.1 F 112 H 18 108/70 95 06/02/18 15:32 06/02/18 15:32 06/02/18 15:32 06/02/18 15:32 06/02/18 15:32 Intake & Output 06/01/18 06/02/18 06/03/18 06:59 06:59 06:59 Intake Total 500 3752 250 Balance 500 3752 250 Weight 85.3 kg 85.7 kg General appearance: PRESENT: no acute distress, well-developed, well-nourished Head exam: PRESENT: atraumatic, normocephalic Eye exam: PRESENT: conjunctiva pink, EOMI, PERRLA. ABSENT: scleral icterus Ear exam: PRESENT: normal external ear exam Mouth exam: PRESENT: moist, tongue midline Neck exam: PRESENT: full ROM. ABSENT: carotid bruit, JVD, lymphadenopathy, thyromegaly Respiratory exam: PRESENT: crackles, decreased breath sounds Cardiovascular exam: PRESENT: RRR, systolic murmur Murmur grade: 4 Pulses: PRESENT: normal dorsalis pedis pul, +2 pedal pulses bilateral Vascular exam: PRESENT: normal capillary refill GI/Abdominal exam: PRESENT: normal bowel sounds, soft. ABSENT: distended, guarding, mass, organolmegaly, rebound, tenderness Rectal exam: PRESENT: deferred Extremities exam: PRESENT: full ROM Neurological exam: PRESENT: alert, awake, oriented to person, oriented to place , oriented to time, oriented to situation, CN II-XII grossly intact. ABSENT: motor sensory deficit Psychiatric exam: PRESENT: appropriate affect, normal mood. ABSENT: homicidal ideation, suicidal ideation Skin exam: PRESENT: dry, intact, warm. ABSENT: cyanosis, rash Results Laboratory Results: 06/02/18 05:22 06/02/18 05:22 06/02/18 06/02/18 05:22 05:22 WBC 6.1 RBC 4.97 Hgb 12.9 L Hct 39.4 MCV 79 L MCH 25.9 L MCHC 32.7 RDW 15.2 H Plt Count 132 L Seg Neutrophils % 60.6 Lymphocytes % 22.3 Monocytes % 13.7 H Eosinophils % 2.9 Basophils % 0.5 Absolute Neutrophils 3.7 Absolute Lymphocytes 1.4 Absolute Monocytes 0.8 Absolute Eosinophils 0.2 Absolute Basophils 0.0 Sodium 142.4 Potassium 3.7 Chloride 102 Carbon Dioxide 25 Anion Gap 15 BUN 13 Creatinine 0.96 Est GFR ( Amer) > 60 Est GFR (Non-Af Amer) > 60 Glucose 87 Calcium 9.5 Impressions: Chest X-Ray 05/31/18 00:00 IMPRESSION: Mild improved aeration in both upper lobe patchy airspace opacities which still persist. No pleural effusion or pneumothorax. Guidance Fluoroscopy 06/02/18 00:00 IMPRESSION: SUCCESSFUL PLACEMENT OF A 5 FR DUAL LUMEN 44 CM PICC IN THE LEFT BASILIC VEIN. Interventional Vascular Procedure 06/02/18 00:00 IMPRESSION: SUCCESSFUL PLACEMENT OF A 5 FR DUAL LUMEN 44 CM PICC IN THE LEFT BASILIC VEIN. PICC Line Insertion 06/02/18 00:00 IMPRESSION: SUCCESSFUL PLACEMENT OF A 5 FR DUAL LUMEN 44 CM PICC IN THE LEFT BASILIC VEIN. Assessment & Plan - Diagnosis (1) Pneumonia Qualifiers: Pneumonia type: due to Pseudomonas Laterality: bilateral Is this a current diagnosis for this admission?: Yes (2) Hypertension Qualifiers: Hypertension type: essential hypertension Qualified Code(s): I10 - Essential (primary) hypertension Is this a current diagnosis for this admission?: Yes (3) Hypothyroidism Is this a current diagnosis for this admission?: Yes
[2018-06-02] MEDS: NORMAL SALINE 10 ML SDV (SCHEDULED) IV SCH (22:13)
[2018-06-02] MEDS ORDERED: DILTIAZEM HCL 180 MG CAPSULE.CR PO ONE (23:00)
[2018-06-03] MEDS: IPRATROPIUM/ALBUTEROL 0.5-2.5 MG/3 ML AMPUL NEB SCH ×3 (02:10→14:07)
[2018-06-03] MEDS: IMIPENEM/CILASTATIN SODIUM 1,000 MG in NORMAL SALINE 250 ML IV SCH ×2 (03:34→11:51)
[2018-06-03] MEDS: LEVOTHYROXINE SODIUM 0.1 MG TABLET PO SCH (06:15)
[2018-06-03] MEDS: LANSOPRAZOLE 30 MG TAB.RAP.DR PO SCH (06:18)
--- NOTE | 2018-06-03 09:17 | EKG REPORT ---
SEVERITY:- ABNORMAL ECG - SINUS TACHYCARDIA LVH WITH SECONDARY REPOLARIZATION ABNORMALITY : Confirmed by: Fely Strickland MD 03-Jun-2018 09:16:49
[2018-06-03] MEDS: POTASSIUM CHLORIDE 10 MEQ CAPSULE.ER PO SCH (10:35)
[2018-06-03] MEDS: LISINOPRIL 5 MG TABLET PO SCH (10:35)
[2018-06-03] MEDS: FUROSEMIDE 40 MG TABLET PO SCH (10:36)
[2018-06-03] MEDS: DILTIAZEM HCL 180 MG CAPSULE.CR PO SCH (10:36)
[2018-06-03] MEDS: ENOXAPARIN SODIUM INJ 30 MG/0.3 ML DISP.SYRIN SUBCUT SCH (10:38)
[2018-06-03] MEDS: NORMAL SALINE 10 ML SDV (SCHEDULED) IV SCH (10:38)
[2018-06-03 14:05] VITALS: BP 107/79
--- NOTE | 2018-06-07 12:56 | PDOC DISCHARGE SUMMARY ---
General - Admit/Disc Date/PCP Admission Date/Primary Care Provider: 05/31/18 19:39 DAMON MAZA MD Discharge Date: 06/03/18 - Discharge Diagnosis (1) Pneumonia Is this a current diagnosis for this admission?: Yes (2) Hypertension Is this a current diagnosis for this admission?: Yes (3) Hypothyroidism Is this a current diagnosis for this admission?: Yes - Additional Information Resuscitation Status: Full Code Discharge Diet: Cardiac Discharge Activity: Activity As Tolerated Prescriptions: Imipenem/Cilastatin Sodium [Primaxin Inj 500 mg Vial] 500 mg IV BID 7 Days vial Ipratropium/Albuterol Sulfate [Duoneb 3 ml Ampul] 3 ml NEB RTQ6 10 Days vial.[facility] Home Medications: Ergocalciferol (Vitamin D2) [Vitamin D2] 50,000 unit PO MO@1000 04/18/14 Omeprazole 40 mg PO DAILY 04/18/14 Diltiazem HCl [Diltiazem 24Hr ER] 180 mg PO DAILY 11/11/16 Levothyroxine Sodium [Synthroid 0.1 mg Tablet] 0.1 mg PO DAILY 05/31/18 Lisinopril [Prinivil 5 mg Tablet] 5 mg PO DAILY 05/31/18 Loratadine [Claritin 10 mg Tablet] 10 mg PO DAILYP PRN 05/31/18 Potassium Chloride 10 meq PO BID 05/31/18 Simvastatin [Zocor 10 mg Tablet] 10 mg PO QPM 05/31/18 Acetaminophen [Tylenol 325 mg Tablet] 650 mg PO Q6HP PRN tablet 06/03/18 Diltiazem HCl [Cardizem Cd 180 mg Capsule] 180 mg PO DAILY capsule.cr 06/03/18 Furosemide [Lasix 40 mg Tablet] 40 mg PO DAILY tablet 06/03/18 Imipenem/Cilastatin Sodium [Primaxin Inj 500 mg Vial] 500 mg IV BID 7 Days vial 06/03/18 Ipratropium/Albuterol Sulfate [Duoneb 3 ml Ampul] 3 ml NEB RTQ6 10 Days vial.neb 06/03/18 Lisinopril [Prinivil 5 mg Tablet] 5 mg PO DAILY tablet 06/03/18 Potassium Chloride [Klor-Con 10 Meq Capsule ER] 20 meq PO DAILY capsule.er History of Present Illness History of Present Illness: NETTE PRINGLE is a 73 year old male Patient comes in 1 month progressive shortness of breath, cough, night sweats, chills purulent sputum. He was seen in my office chest x-ray was shown bilateral pneumonic infiltrates he was started on Levaquin. Results of the sputum showed Pseudomonas resistant to Levaquin Cipro Bactrim only sensitive to IV medications subsequently he was admitted after discussion with local field marketing lead for further treatment. Hospital Course Hospital Course: Patient was admitted placed on beta-2 agonist IV antibiotics which were sensitive to the Pseudomonas from prior sputum's. Chest x-ray was done showed improved bilateral pneumonic infiltrates. Throughout his hospital course he became afebrile, he never mounted leukocytosis, his O2 saturation improved off oxygen to over 95% his shortness of breath, wheezing, dyspnea on exertion resolved since he has proper social social support structure and is of sound mind with no evidence of hypoxia or tachycardia he was felt stable for discharge. PICC line was placed in the hospital and will receive IV antibiotics for another 7 days. With regards to patient's hypertension was well controlled he did have an episode where his blood pressure did decrease but he was asymptomatic without any chest pain dizziness or lightheadedness it was held for 24 hours and resume. He had one episode of tachycardia after a nebulizer treatment he was asymptomatic. Physical Exam Vital Signs: Temp Pulse Resp BP Pulse Ox 98.5 F 91 16 107/79 95 06/03/18 04:00 06/03/18 08:08 06/03/18 08:08 06/03/18 04:00 06/03/18 08:08 Intake & Output 06/02/18 06/03/18 06/04/18 06:59 06:59 06:59 Intake Total 3752 3370 Balance 3752 3370 Weight 85.7 kg 85.3 kg General appearance: PRESENT: no acute distress Head exam: PRESENT: atraumatic, normocephalic Eye exam: PRESENT: conjunctiva pink, EOMI, PERRLA. ABSENT: scleral icterus Ear exam: PRESENT: normal external ear exam Mouth exam: PRESENT: moist, tongue midline Neck exam: PRESENT: full ROM. ABSENT: carotid bruit, JVD, lymphadenopathy, thyromegaly Respiratory exam: PRESENT: crackles Murmur grade: 4 Pulses: PRESENT: normal carotid pulses Vascular exam: PRESENT: normal capillary refill GI/Abdominal exam: PRESENT: ascites, normal bowel sounds, soft. ABSENT: distended, guarding, mass, organolmegaly, rebound, tenderness Rectal exam: PRESENT: deferred Extremities exam: PRESENT: full ROM Musculoskeletal exam: PRESENT: ambulatory, full ROM Neurological exam: PRESENT: alert, awake, oriented to person, oriented to place , oriented to time, oriented to situation, reflexes normal, CN II-XII grossly intact, normal gait Psychiatric exam: PRESENT: appropriate affect, normal mood. ABSENT: homicidal ideation, suicidal ideation Skin exam: PRESENT: dry, intact, warm. ABSENT: cyanosis, rash Results Laboratory Results: 06/02/18 05:22 06/02/18 05:22 Impressions: Chest X-Ray 05/31/18 00:00 IMPRESSION: Mild improved aeration in both upper lobe patchy airspace opacities which still persist. No pleural effusion or pneumothorax. Guidance Fluoroscopy 06/02/18 00:00 IMPRESSION: SUCCESSFUL PLACEMENT OF A 5 FR DUAL LUMEN 44 CM PICC IN THE LEFT BASILIC VEIN. Interventional Vascular Procedure 06/02/18 00:00 IMPRESSION: SUCCESSFUL PLACEMENT OF A 5 FR DUAL LUMEN 44 CM PICC IN THE LEFT BASILIC VEIN. PICC Line Insertion 06/02/18 00:00 IMPRESSION: SUCCESSFUL PLACEMENT OF A 5 FR DUAL LUMEN 44 CM PICC IN THE LEFT BASILIC VEIN. Qualifiers - * PATIENT BEING DISCHARGED WITH ANY OF THE FOLLOWING DIAGNOSIS: No
== END 2018-06-03 17:45 | disposition home health service (06) | DRG 179 ==
LOC: ER 15:44 → EH 19:39 → 4W 06-01 03:41 → 4S 06-02 18:00
PROVIDERS: ADMIT Internal Medicine; ATTEND Internal Medicine
PROC: 3E0F73Z Introduction of Anti-inflammatory into Respiratory Tract, Via Natural or Artificial Opening (ICD-10-PCS; 2018-06-01)
PROC: 02HV33Z Insertion of Infusion Device into Superior Vena Cava, Percutaneous Approach (ICD-10-PCS; principal; 2018-06-02)
PROC: B548ZZA Ultrasonography of Superior Vena Cava, Guidance (ICD-10-PCS; 2018-06-02)
PROC: B518ZZA Fluoroscopy of Superior Vena Cava, Guidance (ICD-10-PCS; 2018-06-02)
DX: J15.1 Pneumonia due to Pseudomonas (principal); I10 Essential (primary) hypertension; E03.9 Hypothyroidism, unspecified; R00.0 Tachycardia, unspecified; K21.9 Gastro-esophageal reflux disease without esophagitis; M19.032 Primary osteoarthritis, left wrist; M19.012 Primary osteoarthritis, left shoulder; Z79.899 Other long term (current) drug therapy; Z88.6 Allergy status to analgesic agent; Z91.040 Latex allergy status; Z88.0 Allergy status to penicillin; Z91.048 Other nonmedicinal substance allergy status
CPT/HCPCS: 36415; 36569; 71046; 76937; 77001; 80048; 80053; 85025; 87040; 87070; 87077; 87186; 87205; 93005; 93010; 94640; 94799; J0743; J1642; J1650; J3490; J7050; J7620

== ENCOUNTER → 2018-07-01 | Outpatient (CLI) | payer MEDICARE ==
--- NOTE | 2018-07-01 11:02 | RADIOLOGY REPORT (SQ) ---
EXAM DESCRIPTION: CHEST PA/LATERAL COMPLETED DATE/TIME: 07/01/2018 8:05 am REASON FOR STUDY: PNEUMONIA, UNSPECIFIED ORGANISM J18.9 PNEUMONIA, UNSPECIFIED ORGANISM COMPARISON: 05/20/2018, 05/31/2018 NUMBER OF VIEWS: Two view TECHNIQUE: Frontal and lateral radiographic images of the chest acquired. LIMITATIONS: None. FINDINGS: LUNGS AND PLEURA: Persistent patchy airspace opacities in both lungs more confluent in the left upper lobe. There is associated bronchiectasis. Hilar retraction on the right. No effusions. MEDIASTINUM AND HILAR STRUCTURES: Stable heart size and mediastinal structures. HEART AND VASCULAR STRUCTURES: Stable appearance. BONES: No acute findings. HARDWARE: None in the chest. OTHER: No other significant finding. IMPRESSION: No significant change in appearance of the chest from either prior. There is pulmonary fibrosis and bronchiectasis which may be the patient's baseline. Concurrent pneumonia or mass in the left upper lobe not excluded and not significantly changed. TECHNICAL DOCUMENTATION: JOB ID: [id number] [employer]- All Rights Reserved Reading location - IP/workstation name: [facility]-[email or web address]
== END ==
LOC: OD 07:55
PROVIDERS: ATTEND Internal Medicine
DX: J18.9 Pneumonia, unspecified organism (principal)
CPT/HCPCS: 71046

== ENCOUNTER → 2018-07-18 | Outpatient (CLI) | payer MEDICARE ==
--- NOTE | 2018-07-18 08:47 | RADIOLOGY REPORT (SQ) ---
EXAM DESCRIPTION: CT CHEST WITHOUT COMPLETED DATE/TIME: 07/18/2018 7:52 am REASON FOR STUDY: PNEUMONIA (J18.9) J18.9 PNEUMONIA, UNSPECIFIED ORGANISM COMPARISON: CHEST FILMS 05/20/2018, 05/31/2018, 07/01/2018 TECHNIQUE: CT scan performed of the chest without intravenous contrast. Images reviewed with lung, soft tissue and bone windows. Reconstructed coronal and sagittal MPR images reviewed. All images st ored on PACS. All CT scanners at this facility use dose modulation, iterative reconstruction, and/or weight based d osing when appropriate to reduce radiation dose to as low as reasonably achievable (ALARA). [facility]: Dose Right [facility]: CareDose [facility]: Dose Right [facility]: Teradose 4D [facility]: Smart Technologies RADIATION DOSE: CT Rad equipment meets quality standard of care and radiation dose reduction techniq ues were employed. CTDIvol: 11.6 mGy. DLP: 454 mGy-cm. mGy. LIMITATIONS: No technical limitations. FINDINGS: LUNGS AND PLEURA: End-stage appearance of the bronchiectasis and scarring is present in th e bilateral superior segment lower lobes, and the dependent portion of both upper lobes. Bronchiectasis and scarring is also present in the lateral aspect of the lingula, with patchy bronchi ectasis and scarring in bilateral lower lobes. No pleural effusions. No pneumothorax. HILAR AND MEDIASTINAL STRUCTURES: Diffuse enlarged calcified and noncalcified lymph nodes are present as follows: Right paratracheal 1.3 x 1.1 cm image 14 Pretracheal 2.6 x 2.5 cm image 18 AP window 2.1 x 1.3 cm image 18 Sub- carinal 3 x 1.9 cm image 30 There is a huge retrocardiac hiatal hernia with a distended esophagus with air-fluid levels in the up per 3rd of the esophagus. Findings in the lungs could partially be related to reflux and aspiration pneumonitis. HEART AND VASCULAR STRUCTURES: No aneurysm. No pericardial effusion. UPPER ABDOMEN: Surgical clips are present at the diaphragmatic hiatus for the esophagus. Question fa iled Livan THYROID AND OTHER SOFT TISSUES: No masses. No adenopathy. BONES: No significant finding. HARDWARE: None in the chest. OTHER: No other significant findings. IMPRESSION: End-stage appearance of bronchiectasis and scarring in the lungs with calcified mediasti nal lymph nodes. Underlying chronic disease such as sarcoidosis should be considered. Lung parenchy mal scarring and bronchiectasis in part could be due to uncontrolled reflux with intermittent aspirat ion. TECHNICAL DOCUMENTATION: JOB ID: [id number] Quality ID # [id number]: Final reports with documentation of one or more dose reduction techniques (e.g., Au tomated exposure control, adjustment of the mA and/or kV according to patient size, use of iterative reconstruction technique) 2010 [employer]- All Rights Reserved Reading location - IP/workstation name: [email or web address]
== END ==
LOC: RAD 06:43
PROVIDERS: ATTEND Internal Medicine
DX: J18.9 Pneumonia, unspecified organism (principal)
CPT/HCPCS: 71250

== ENCOUNTER → 2018-08-15 | Outpatient (CLI) | payer MEDICARE ==
[2018-08-15 10:02] LABS: ALANINE AMINOTRANSFERASE 17 U/L (21-72); ALKALINE PHOSPHATASE 78 U/L (38-126); ASPARTATE AMINO TRANSFERASE 22 U/L (17-59); BILIRUBIN,DIRECT 0.3 mg/dL (0.0-0.4); BILIRUBIN,TOTAL 0.5 mg/dL (0.2-1.3); TOTAL PROTEIN 7.9 g/dL (6.3-8.2); TRIGLYCERIDES 156 mg/dL (<150)
[2018-08-15 10:13] LABS: DIRECT LDL 43 mg/dL (<100)
[2018-08-15 10:18] LABS: VLDL CHOLESTEROL 31.2 mg/dL (10-31)
== END ==
LOC: OD 07:56
PROVIDERS: ATTEND Internal Medicine
DX: I35.1 Nonrheumatic aortic (valve) insufficiency (principal); I36.1 Nonrheumatic tricuspid (valve) insufficiency; I10 Essential (primary) hypertension; R00.2 Palpitations; R01.1 Cardiac murmur, unspecified; Z86.79 Personal history of other diseases of the circulatory system; R55 Syncope and collapse; E78.5 Hyperlipidemia, unspecified; K21.9 Gastro-esophageal reflux disease without esophagitis; E03.9 Hypothyroidism, unspecified; Z79.899 Other long term (current) drug therapy
CPT/HCPCS: 36415; 80061; 80076

== ENCOUNTER → 2018-09-09 | Outpatient (CLI) | payer MEDICARE ==
[2018-09-09 09:50] LABS: ANION GAP 13 (5-19); BLOOD UREA NITROGEN 12 mg/dL (7-20); CALCIUM 9.5 mg/dL (8.4-10.2); CARBON DIOXIDE 24 mmol/L (22-30); CHLORIDE 107 mmol/L (98-107); GLUCOSE 90 mg/dL (75-110); POTASSIUM 4.5 mmol/L (3.6-5.0); SODIUM 144.1 mmol/L (137-145); URIC ACID 7.4 mg/dL (3.5-8.5)
== END ==
LOC: OD 07:32
PROVIDERS: ATTEND Internal Medicine
DX: E78.5 Hyperlipidemia, unspecified (principal); I10 Essential (primary) hypertension; M10.9 Gout, unspecified
CPT/HCPCS: 36415; 80048; 84443; 84550

== ENCOUNTER → 2018-09-20 | Outpatient (CLI) | payer MEDICARE ==
[2018-09-20 08:12] LABS: APPEARANCE,URINE CLEAR; BILIRUBIN,URINE NEGATIVE (NEGATIVE); COLOR,URINE STRAW; GLUCOSE, URINE NEGATIVE (NEGATIVE); KETONES,URINE NEGATIVE (NEGATIVE); LEUKOCYTE ESTERASE,URINE NEGATIVE (NEGATIVE); NITRITE,URINE NEGATIVE (NEGATIVE); PROTEIN,URINE NEGATIVE (NEGATIVE); URINE SPECIFIC GRAVITY 1.012; UROBILINOGEN,URINE NEGATIVE mg/dL (<2.0)
[2018-09-20 08:22] LABS: CHOLESTEROL 146.65 mg/dL (0-200); TRIGLYCERIDES 106 mg/dL (<150)
[2018-09-20 08:33] LABS: DIRECT LDL 64 mg/dL (<100)
== END ==
LOC: OD 07:09
PROVIDERS: ATTEND Internal Medicine
DX: J84.9 Interstitial pulmonary disease, unspecified (principal); R91.8 Other nonspecific abnormal finding of lung field; R06.09 Other forms of dyspnea; R91.1 Solitary pulmonary nodule; I38 Endocarditis, valve unspecified; E03.9 Hypothyroidism, unspecified; M10.9 Gout, unspecified; I10 Essential (primary) hypertension; E78.5 Hyperlipidemia, unspecified
CPT/HCPCS: 36415; 80061; 81001; 82164; 86038; 86140; 86430

== ENCOUNTER → 2018-10-10 | Outpatient (CLI) | payer MEDICARE ==
--- NOTE | 2018-10-10 13:24 | RADIOLOGY REPORT (SQ) ---
EXAM DESCRIPTION: CT CHEST WITHOUT COMPLETED DATE/TIME: 10/10/2018 12:39 pm REASON FOR STUDY: PULMONARY NODULE (R91.1) R91.1 SOLITARY PULMONARY NODULE COMPARISON: 07/18/2018 TECHNIQUE: CT scan performed of the chest without intravenous contrast. Images reviewed with lung, soft tissue and bone windows. Reconstructed coronal and sagittal MPR images reviewed. All images st ored on PACS. All CT scanners at this facility use dose modulation, iterative reconstruction, and/or weight based d osing when appropriate to reduce radiation dose to as low as reasonably achievable (ALARA). [facility]: Dose Right [facility]: CareDose [facility]: Dose Right [facility]: Teradose 4D [facility]: Smart [employer] RADIATION DOSE: CT Rad equipment meets quality standard of care and radiation dose reduction techniq ues were employed. CTDIvol: 8.6 mGy. DLP: 345 mGy-cm. mGy. LIMITATIONS: No technical limitations. FINDINGS: LUNGS AND PLEURA: Extensive parenchymal scarring with bronchiectasis. No honeycombing. S table in appearance. No effusions. HILAR AND MEDIASTINAL STRUCTURES: Calcified nodes. No adenopathy. HEART AND VASCULAR STRUCTURES: No aneurysm. No pericardial effusion. UPPER ABDOMEN: Surgical changes relation to the stomach. Hiatal hernia. THYROID AND OTHER SOFT TISSUES: No masses. No adenopathy. BONES: No significant finding. HARDWARE: None in the chest. OTHER: No other significant findings. IMPRESSION: Stable appearance since the previous study. Extensive chronic scarring through the lung s. Bronchiectasis. Healed granulomatous disease. TECHNICAL DOCUMENTATION: JOB ID: [id number] Quality ID # [id number]: Final reports with documentation of one or more dose reduction techniques (e.g., Au tomated exposure control, adjustment of the mA and/or kV according to patient size, use of iterative reconstruction technique) 2010 [employer]- All Rights Reserved Reading location - IP/workstation name: [email or web address]
== END ==
LOC: RAD 12:23
PROVIDERS: ATTEND Internal Medicine Critical Care Medicine
DX: J47.9 Bronchiectasis, uncomplicated (principal); R91.1 Solitary pulmonary nodule
CPT/HCPCS: 71250

== ENCOUNTER → 2018-10-25 | Outpatient (CLI) | payer MEDICARE ==
--- NOTE | 2018-10-27 08:59 | RADIOLOGY REPORT (SQ) ---
EXAM DESCRIPTION: PET CT SKULL/THIGH COMPLETED DATE/TIME: 10/25/2018 9:36 pm REASON FOR STUDY: R91.8 OTHER NONSPECIFIC ABNORMAL FINDING OF LUNG FIELD R91.8 OTHER NONSPECIFIC AB NORMAL FINDING OF LUNG FIELD COMPARISON: No prior pets, CT 10/10/2018, 07/18/2018 RADIONUCLIDE AND DOSE: 10.0 mCi F18 FDG The route of agent administration: Intravenous FASTING BLOOD SUGAR: 75 mg/dl CONTRAST TYPE AND DOSE: 10/10/2018 TECHNIQUE: Blood glucose level was verified. Above dose of FDG was injected intravenously. 2-D seg mented attenuation correction images were obtained from the base of the skull to the midthighs. Nonc ontrast CT images were obtained for attenuation correction and fusion with emission images. CT image s were performed without oral or intravenous contrast and are not sensitive for parenchymal lesions. A series of overlapping emission PET images were obtained. Images reviewed and [facility] by the radiologist. Images stored on PACS. LIMITATIONS: None. FINDINGS: HEAD AND NECK: No areas of abnormal metabolic activity in the soft tissues of the head and neck. CHEST: There are multiple areas of abnormal FDG uptake throughout both lungs corresponding to the are as of irregular consolidation and bronchiectasis bilaterally. No discrete focal lesion identified. On the left max SUV in the upper lobe area of consolidation measures 5.5, average 4.3. On the right max SUV within the lower lobe consolidation measures 5.7, average 3.9. ABDOMEN AND PELVIS: Normal size spleen with diffuse FDG uptake and no CT correlate (max SUV 7.5, aver age 6.7). No additional areas of abnormal metabolic activity in the abdomen or pelvis. Expected phy siologic activity is present in the genitourinary system and bowel. PROXIMAL LOWER EXTREMITIES: No areas of abnormal metabolic activity in the soft tissues of the lower extremities. BONES: No abnormal metabolic activity in the visualized skeleton. ADDITIONAL CT FINDINGS: Grossly stable irregular bilateral consolidation and bronchiectasis throughou t both lungs without discrete mass identified. Debris-filled dilated esophagus. Unchanged calcified mediastinal nodes. No evidence of additional acute process. OTHER: No other significant findings. IMPRESSION: 1. Multiple areas of abnormal FDG uptake throughout both lungs corresponding to areas o f irregular consolidation and bronchiectasis bilaterally. No discrete focal mass identified. Findin gs likely relate to infectious etiology although underlying inflammatory etiology (sarcoidosis) is al so a consideration. 2. Normal size spleen with diffuse increased FDG uptake (max SUV 7.5, average 6.7). Findings nonspe cific and may be seen with lymphoproliferative disorder although also may be seen in sarcoidosis and various other inflammatory or hemopoietic disorders. 3. Dilated debris-filled esophagus which may predispose patient to repeated bouts of aspiration. TECHNICAL DOCUMENTATION: JOB ID: [id number] [employer]- All Rights Reserved Reading location - IP/workstation name: [facility]
== END ==
LOC: RAD 18:48
PROVIDERS: ATTEND Internal Medicine Critical Care Medicine
DX: R91.1 Solitary pulmonary nodule (principal); R91.8 Other nonspecific abnormal finding of lung field
CPT/HCPCS: 78815; A9552

== ENCOUNTER → 2018-11-10 | Outpatient (CLI) | payer MEDICARE ==
[2018-11-10 08:09] LABS: APPEARANCE,URINE CLEAR; BILIRUBIN,URINE NEGATIVE (NEGATIVE); COLOR,URINE STRAW; GLUCOSE, URINE NEGATIVE (NEGATIVE); KETONES,URINE NEGATIVE (NEGATIVE); LEUKOCYTE ESTERASE,URINE NEGATIVE (NEGATIVE); NITRITE,URINE NEGATIVE (NEGATIVE); PROTEIN,URINE NEGATIVE (NEGATIVE); URINE SPECIFIC GRAVITY 1.009; UROBILINOGEN,URINE NEGATIVE mg/dL (<2.0)
[2018-11-11 16:39] LABS: CYTOPLASMIC (C-ANCA) <1:20 titer (Neg:<1:20)
[2018-11-11 19:18] LABS: ATYPICAL PANCA <1:20 titer (Neg:<1:20); PERINUCLEAR (P-ANCA) <1:20 titer (Neg:<1:20)
== END ==
LOC: OD 07:14
PROVIDERS: ATTEND Internal Medicine Critical Care Medicine
DX: E78.5 Hyperlipidemia, unspecified (principal); I10 Essential (primary) hypertension; M10.9 Gout, unspecified; E03.9 Hypothyroidism, unspecified; R91.8 Other nonspecific abnormal finding of lung field; R06.09 Other forms of dyspnea; R91.1 Solitary pulmonary nodule; I38 Endocarditis, valve unspecified
CPT/HCPCS: 36415; 81001; 82164; 85652; 86021; 86038; 86140; 86430

== ENCOUNTER 2018-11-11 06:52 | Day surgery (SDC) | payer MEDICARE ==
[2018-11-11] MEDS ORDERED: DIPHENHYDRAMINE HCL 50 MG/ML VIAL ONE (07:18)
[2018-11-11] MEDS ORDERED: ONDANSETRON HCL INJ/PF 4 MG/2 ML SDV ONE (07:18)
[2018-11-11] MEDS ORDERED: NALOXONE HCL INJ/PF 0.4 MG/1 ML SDV ONE (07:19)
[2018-11-11] MEDS ORDERED: EPINEPHRINE INJ 1 MG/10 ML DISP.SYRIN ONE (07:19)
[2018-11-11] MEDS ORDERED: GLUCAGON,HUMAN RECOMB 1 MG INJ ONE (07:19)
[2018-11-11] MEDS ORDERED: FLUMAZENIL INJ 0.5 MG/5 ML VIAL ONE (07:19)
[2018-11-11] MEDS ORDERED: LIDOCAINE 2% JELLY 30 ML TUBE ONE (07:20)
[2018-11-11] MEDS ORDERED: EPINEPHRINE INJ/PF 1 MG/1 ML AMPULE ONE (07:20)
[2018-11-11] MEDS ORDERED: LIDOCAINE 2% INJ (20 MG/ML) 20 ML MDV ONE (07:20)
[2018-11-11 07:50] LABS: INTERNATIONAL RATION (INR) 1.02; PROTHROMBIN TIME 13.9 SEC (11.4-15.4)
[2018-11-11 07:51] LABS: PARTIAL THROMBOPLASTIN TIME 28.8 SEC (23.5-35.8)
[2018-11-11 08:03] LABS: HEMATOCRIT 37.1 % (37.9-51.0); HEMOGLOBIN 12.3 g/dL (13.5-17.0); MEAN CORPUSCULAR HEMOGLOBIN 26.4 pg (27.0-33.4); MEAN CORPUSCULAR HGB CONC 33.3 g/dL (32.0-36.0); MEAN CORPUSCULAR VOLUME 79 fl (80-97); PLATELET COUNT 178 10^3/uL (150-450); RED BLOOD COUNT 4.68 10^6/uL (4.35-5.55); RED CELL DISTRIBUTION WIDTH 14.9 % (11.5-14.0); WHITE BLOOD COUNT 5.6 10^3/uL (4.0-10.5)
[2018-11-11 08:06] LABS: ANION GAP 10 (5-19); BLOOD UREA NITROGEN 13 mg/dL (7-20); CALCIUM 9.3 mg/dL (8.4-10.2); CARBON DIOXIDE 24 mmol/L (22-30); CHLORIDE 105 mmol/L (98-107); GLUCOSE 97 mg/dL (75-110); POTASSIUM 4.3 mmol/L (3.6-5.0); SODIUM 138.8 mmol/L (137-145)
--- NOTE | 2018-11-11 08:24 | EKG REPORT ---
SEVERITY:- ABNORMAL ECG - SINUS RHYTHM FIRST DEGREE AV BLOCK BORDERLINE T ABNORMALITIES, INFERIOR LEADS : Confirmed by: Fely Strickland MD 11-Nov-2018 08:23:56
[2018-11-11] MEDS: MIDAZOLAM 2 MG/2 ML INJ ONE ×11 (08:46→09:16)
[2018-11-11] MEDS: FENTANYL CITRATE INJ/PF 100 MCG/2 ML AMPUL ONE ×4 (08:55→09:06)
--- NOTE | 2018-11-11 11:05 | RADIOLOGY REPORT (SQ) ---
EXAM DESCRIPTION: CHEST SINGLE VIEW COMPLETED DATE/TIME: 11/11/2018 9:47 am REASON FOR STUDY: S/P BRONCHOSCOPY COMPARISON: 05/31/2018 10/10/2018 EXAM PARAMETERS: NUMBER OF VIEWS: One view. TECHNIQUE: Single frontal radiographic view of the chest acquired. RADIATION DOSE: NA LIMITATIONS: None. FINDINGS: LUNGS AND PLEURA: Persistent patchy bilateral interstitial alveolar opacities greatest wit hin the left upper lung, not significantly changed from prior CT. Note significant pleural effusion. No pneumothorax. MEDIASTINUM AND HILAR STRUCTURES: Enlarged, stable. HEART AND VASCULAR STRUCTURES: Enlarged, stable. BONES: No acute findings. HARDWARE: None in the chest. OTHER: No other significant finding. IMPRESSION: No evidence of pneumothorax or new effusion post bronchoscopy. Persistent patchy bilateral airspace disease, not significantly changed from prior. TECHNICAL DOCUMENTATION: JOB ID: [id number] [employer]- All Rights Reserved Reading location - IP/workstation name: [email or web address]
[2018-11-11 11:41] LABS: FLUID APPEARANCE CLOUDY; FLUID COLOR RED; FLUID TYPE BRONCHIAL WASH
[2018-11-11 11:42] LABS: FLUID VISCOSITY HIGHLY VISCOUS
[2018-11-11 11:54] VITALS: BP 106/67
--- NOTE | 2018-11-12 09:22 | OPERATIVE REPORT E ---
Operative Report NAME: NETTE PRINGLE : 1945 AGE: 73Y DATE OF SURGERY: 11/11/2018 ROOM: PREOPERATIVE DIAGNOSIS: The patient is a 73-year-old -[place] male with pulmonary infiltrates in both lungs with high PET scan uptake presenting with chronic cough and gradually worsening exertional dyspnea. PROCEDURE: Flexible bronchoscopy with bronchial washing, bronchial alveolar lavage of left upper lobe - superior lingula, and transbronchial lung biopsy of left upper lobe - apicoposterior and anterior bronchopulmonary segments. SURGEON: SAEED HUDSON M.D. SEDATION: Conscious sedation using IV Versed, total dose of 5.5 mg and IV fentanyl to the total dose of 100 mcg. ANESTHESIA: Topical using 2% lidocaine solution, total dose of 14 mL and Hurricaine spray x6. BLOOD LOSS: About 2 mL. SPECIMENS OBTAINED: Bronchial washing, bronchoalveolar lavage, and transbronchial lung biopsy. OPERATIVE NOTE: Consent was obtained from the patient. The patient verbalized understanding and the indications, risks, and potential complications of the procedure, such as pneumothorax, bleeding, and infection, myocardial ischemia. The patient was connected to the court monitor, pulse oximetry, blood pressure monitor, and respiratory monitor. The patient was given 5 mL of 2% lidocaine solution via nebulizer and the patient was given Hurricaine spray x6 oropharyngeal area. The patient was given Versed at increments of 0.5 mg to a total dose of 5.5 mg and given fentanyl at increments of 25 mcg to a total of 100 mcg. Flexible bronchoscope was inserted into the mouth. Vocal cords and periglottic structures appeared normal. 1 ml aliquots of 1% lidocaine solution was applied to the airway as the flexible bronchoscope was advanced into the segmental airways. Trachea appeared normal. Brianda is at midline and sharp. Secretions were collected from the tracheal area and right lung, right mainstem bronchus, and left mainstem bronchus, and segmental airways of the right lung and the left lung. Bronchoalveolar lavage was performed on the left upper lobe superior lingula. Transbronchial lung biopsy was performed x4 on the left upper lobe, 2 from the apical posterior segments, and 2 from the anterior segment of left upper lobe. Slight bleeding was noted. Cold saline solution was applied on the biopsy segments and no profuse bleeding was noted. No active bleeding was noted at the end of the procedure. Chest x-ray was obtained showing diffuse infiltrates bilaterally. No apparent pneumothorax. Chest x-ray is pending radiology interpretation. The bronchial washing will be sent for microbiology and cytology. The bronchial washing will be sent for AFB, bacterial and fungal cultures and smears. Bronchoalveolar lavage will be sent for cytology and transbronchial lung biopsy on the left lung were sent to the pathology department. Pulmonary clinic followup in 1 week. DICTATING PHYSICIAN: SAEED HUDSON MD,CHRISSY,MPH [id number] PHY#: [id number] ID: [id number] JOB#: [id number] ACCT: [id number] cc:SAEED HUDSON M.D. > [facility]
== END 2018-11-11 11:55 | disposition home or self-care (01) ==
LOC: END 06:52
PROVIDERS: ATTEND Internal Medicine Critical Care Medicine
DX: R91.1 Solitary pulmonary nodule (principal); R91.8 Other nonspecific abnormal finding of lung field; J84.9 Interstitial pulmonary disease, unspecified; R06.00 Dyspnea, unspecified; Z88.6 Allergy status to analgesic agent; J60 Coalworker's pneumoconiosis; Z79.51 Long term (current) use of inhaled steroids; Z79.899 Other long term (current) drug therapy; I10 Essential (primary) hypertension; M10.9 Gout, unspecified; I38 Endocarditis, valve unspecified
CPT/HCPCS: 31625; 31624; 88112 ×2; 36415; 87070; 87205; 87206; 87116; 87101; 85027; 85610; 85730; 89050; 80048; 87015; 88305 ×2; 71045; 93005; 93010; J2250; J3490; J3010; J0171; J1200; J1610; J2310; J2405

== ENCOUNTER 2018-12-04 00:11 | Emergency (ER) | payer MEDICARE ==
--- NOTE | 2018-12-04 02:31 | ER Document Report ---
ED General - General Chief Complaint: Lip Swelling Stated Complaint: POSSIBLE ALLERGIC REACTION Time Seen by Provider: 12/04/18 00:29 Primary Care Provider: KENRICK MAZA MD [Primary Care Provider] - Follow up as needed Notes: Patient is a 73-year-old male with a past medical history of hypertension, hyperlipidemia, presents with acute onset of upper lip swelling that started approximately 2 hours prior to arrival. Patient states that this started as a moderate amount of swelling the upper lip and has progressed somewhat since that time. Denies any difficulty breathing or swallowing. Denies any rash, nausea, vomiting or itching. No history of similar symptoms in the past. States he has been taking lisinopril 5 mg for quite some time although his dose was increased to 10 mg today. He has not contacted his general physician regarding today's concerns. Nothing is been noted to improve or worsen his symptoms since onset. He denies any pain to the lip but does note that it feels like a tightness s ensation. TRAVEL OUTSIDE OF THE [place] IN LAST 30 DAYS: No - Related Data Allergies/Adverse Reactions: aspirin [Aspirin] Allergy (Severe, Verified 12/04/18 00:46) Hives Penicillins Allergy (Severe, Verified 12/04/18 00:46) Hives pollen extracts Allergy (Intermediate, Verified 12/04/18 00:46) RUNNY NOSE,ITCHY EYES, SORE THROAT. latex Allergy (Mild, Verified 12/04/18 00:46) RASH Past Medical History - General Information source: Patient - Social History Smoking Status: Never Smoker Frequency of alcohol use: None Drug Abuse: None Lives with: Spouse/Significant other Family History: Reviewed & Not Pertinent Patient has suicidal ideation: No Patient has homicidal ideation: No - Past Medical History Cardiac Medical History: Reports: Hx Hypertension Denies: Hx Coronary Artery Disease, Hx Heart Attack Pulmonary Medical History: Reports: Hx Asthma - SINCE , Hx COPD, Hx Pneumonia - 1998, present Denies: Hx Bronchitis Neurological Medical History: Denies: Hx Cerebrovascular Accident, Hx Seizures Endocrine Medical History: Reports: Hx Hypothyroidism Renal/ Medical History: Denies: Hx Peritoneal Dialysis GI Medical History: Reports: Hx Gastroesophageal Reflux Disease Musculoskeletal Medical History: 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 HENT: Positive for upper lip swelling Eyes: Negative for visual changes. Cardiovascular: Negative for chest pain. Respiratory: Negative for shortness of breath. Gastrointestinal: Negative for abdominal pain, vomiting or diarrhea. Genitourinary: Negative for dysuria. Musculoskeletal: Negative for back pain. Skin: Negative for rash. Neurological: Negative for headaches, weakness or numbness. 10 point ROS negative except as marked above and in HPI. Physical Exam - Vital signs Vitals: Temp Pulse Resp BP Pulse Ox 97.8 F 77 14 152/96 H 100 12/04/18 00:15 12/04/18 00:15 12/04/18 00:15 12/04/18 00:15 12/04/18 00:15 Interpretation: Hypertensive Notes: PHYSICAL EXAMINATION: GENERAL: Well-appearing, well-nourished and in no acute distress. HEAD: Atraumatic, normocephalic. EYES: Pupils equal round and reactive to light, extraocular movements intact, sclera anicteric, conjunctiva are normal. ENT: nares patent, oropharynx clear without exudates. No edema of the tongue or posterior airway. Moderate angioedema of the upper lip alone. Moist mucous membranes. NECK: Normal range of motion, supple without lymphadenopathy LUNGS: Breath sounds clear to auscultation bilaterally and equal. No wheezes rales or rhonchi. HEART: Regular rate and rhythm without murmurs ABDOMEN: Soft, nontender, normoactive bowel sounds. No guarding, no rebound. No masses appreciated. EXTREMITIES: Normal range of motion, no pitting or edema. No cyanosis. NEUROLOGICAL: No focal neurological deficits. Moves all extremities spontaneously and on command. PSYCH: Normal mood, normal affect. SKIN: Warm, Dry, normal turgor, no rashes or lesions noted. Course - Re-evaluation Re-evalutation: 12/04/18 02:27 Patient presents with angioedema of the upper lip secondary to lisinopril. No oropharyngeal involvement. Airway patent. Phonation normal. Able to handle secretions. Tolerating oral intake without difficulty. Patient was observed and did not develop any progression of the swelling or any evidence of airway occlusion. They have been educated at length about the importance of avoiding ACEi. At this time will discharge with return precautions and follow-up recommendations. Verbal discharge instructions given a the bedside and opportunity for questions given. Medication warnings reviewed. Patient is in agreement with this plan and has verbalized understanding of return precautions and the need for primary care follow-up in the next 24-72 hours. 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 This is related to a medication you are taking called lisinopril. You may never take this medication again as you could have a recurrence of an even more severe version of what brought you to to the emergency department today. You have been started on hydrochlorothiazide in place of lisinopril. Your swelling will resolve over the next several days. Return to emergency room immediately if you have worsening swelling, shortness of breath, difficulty swallowing, noticed a change in your voice, or have any other symptoms that are of concern to you. Prescriptions: Hydrochlorothiazide [Hydrodiuril 25 mg Tablet] 25 mg PO QAM #30 tablet Referrals: KENRICK MAZA MD [Primary Care Provider] - Follow up in 3-5 days
[2018-12-04 03:00] VITALS: BP 123/94
== END 2018-12-04 03:00 | disposition home or self-care (01) ==
LOC: ER 00:11
DX: T78.3XXA Angioneurotic edema, initial encounter (principal); T46.4X5A Adverse effect of angiotensin-converting-enzyme inhibitors, initial encounter; I10 Essential (primary) hypertension; E78.5 Hyperlipidemia, unspecified; Z79.899 Other long term (current) drug therapy; J44.9 Chronic obstructive pulmonary disease, unspecified
CPT/HCPCS: 99283

== ENCOUNTER → 2018-12-15 | Outpatient (CLI) | payer MEDICARE ==
[2018-12-15 08:03] LABS: TRIGLYCERIDES 149 mg/dL (<150)
[2018-12-15 08:14] LABS: DIRECT LDL 66 mg/dL (<100)
== END ==
LOC: OD 07:09
PROVIDERS: ATTEND Internal Medicine
DX: E78.5 Hyperlipidemia, unspecified (principal); E55.9 Vitamin D deficiency, unspecified; E03.9 Hypothyroidism, unspecified
CPT/HCPCS: 36415; 80061; 82306; 84443

== ENCOUNTER → 2019-01-12 | Outpatient (CLI) | payer MEDICARE ==
[2019-01-12 09:00] LABS: ANION GAP 11 (5-19); BLOOD UREA NITROGEN 23 mg/dL (7-20); CARBON DIOXIDE 29 mmol/L (22-30); CHLORIDE 101 mmol/L (98-107); GLUCOSE 103 mg/dL (75-110); POTASSIUM 4.3 mmol/L (3.6-5.0); SODIUM 141.4 mmol/L (137-145)
== END ==
LOC: OD 07:34
PROVIDERS: ATTEND Internal Medicine
DX: N19 Unspecified kidney failure (principal); E03.9 Hypothyroidism, unspecified
CPT/HCPCS: 36415; 80048; 84443

== ENCOUNTER → 2019-01-16 | Outpatient (CLI) | payer MEDICARE ==
--- NOTE | 2019-01-16 11:04 | RADIOLOGY REPORT (SQ) ---
EXAM DESCRIPTION: CT CHEST WITHOUT COMPLETED DATE/TIME: 01/16/2019 9:23 am REASON FOR STUDY: PULMONARY NODULE (R91.1) R91.1 SOLITARY PULMONARY NODULE COMPARISON: 10/10/2018 TECHNIQUE: CT scan performed of the chest without intravenous contrast. Images reviewed with lung, soft tissue and bone windows. Reconstructed coronal and sagittal MPR images reviewed. All images st ored on PACS. All CT scanners at this facility use dose modulation, iterative reconstruction, and/or weight based d osing when appropriate to reduce radiation dose to as low as reasonably achievable (ALARA). [facility]: Dose Right [facility]: CareDose [facility]: Dose Right [facility]: Teradose 4D [facility]: Smart Rewalon RADIATION DOSE: CT Rad equipment meets quality standard of care and radiation dose reduction techniq ues were employed. CTDIvol: 10.7 mGy. DLP: 428 mGy-cm. LIMITATIONS: No technical limitations. FINDINGS: LUNGS AND PLEURA: Extensive stable bronchiectatic changes in the lungs, more so centrally , with associated confluent areas of fibrosis/scar. Several of the larger slightly ill-defined multi focal nodular opacities in the lungs have slightly decreased in size. There are other smaler areas o f ill-defined nodular opacities in the lungs, which are stable. Prior granulomatous disease. No pneu mothorax or pleural effusion. The central airways are clear. HILAR AND MEDIASTINAL STRUCTURES: Stable appearance to the esophagus which is dilated with an air-fl uid level. Stable calcified mediastinal lymph nodes. HEART AND VASCULAR STRUCTURES: Small focal areas of coronary artery calcifications. No aneurysm. N o pericardial effusion. UPPER ABDOMEN: Post surgical changes related to the stomach and hiatal hernia, stable findings. A s table well-defined 1.3 cm lipoma in the tail of the pancreas. Limited exam. THYROID AND OTHER SOFT TISSUES: No masses. No adenopathy. BONES: The osseous structures are stable in appearance. HARDWARE: None in the chest. OTHER: No other significant findings. IMPRESSION: 1. Since the previous examination dated 10/10/2018, several of the larger, slightly ill- defined, multifocal nodular opacities in the lungs have slightly decreased in size. 2. Extensive bronchiectatic changes with associated confluent areas of fibrosis/scar in the lungs, mo re so centrally. 3. Additional stable findings. TECHNICAL DOCUMENTATION: JOB ID: [id number] Quality ID # [id number]: Final reports with documentation of one or more dose reduction techniques (e.g., Au tomated exposure control, adjustment of the mA and/or kV according to patient size, use of iterative reconstruction technique) 2010 [employer]- All Rights Reserved Reading location - IP/workstation name: [email or web address]
== END ==
LOC: RAD 09:09
PROVIDERS: ATTEND Internal Medicine Critical Care Medicine
DX: R91.1 Solitary pulmonary nodule (principal)
CPT/HCPCS: 71250

== ENCOUNTER → 2019-02-13 | Outpatient (CLI) | payer MEDICARE | LOC: OD 07:23 | PROVIDERS: ATTEND Internal Medicine | DX: E03.9 Hypothyroidism, unspecified (principal) | CPT/HCPCS: 36415; 84443 ==

== ENCOUNTER → 2019-03-27 | Outpatient (CLI) | payer MEDICARE ==
[2019-03-27 08:19] LABS: CHOLESTEROL 132.08 mg/dL (0-200); TRIGLYCERIDES 117 mg/dL (<150)
[2019-03-27 08:44] LABS: DIRECT LDL 49 mg/dL (<100)
== END ==
LOC: OD 07:04
PROVIDERS: ATTEND Internal Medicine
DX: E78.5 Hyperlipidemia, unspecified (principal)
CPT/HCPCS: 36415; 80061

== ENCOUNTER → 2019-03-27 | Outpatient (CLI) | payer MEDICARE ==
--- NOTE | 2019-03-27 15:43 | RADIOLOGY REPORT (SQ) ---
EXAM DESCRIPTION: UGI SERIES COMPLETED DATE/TIME: 03/27/2019 9:30 am REASON FOR STUDY: *W/BASW* DIAPHRAGMATIC HERNIA W/O OBSTRUCTION (K44.9) K44.9 DIAPHRAGMATIC HERNIA WITHOUT OBSTRUCTION OR GANGRENE COMPARISON: None. TECHNIQUE: Under fluoroscopic guidance, patient ingested effervescent granules followed by thick and thin barium. Fluoroscopic spot images and routine radiographic images acquired and stored on PACS. 12 MM BARIUM TABLET GIVEN: Barium tablet passed through the esophagus into the stomach without delay. LIMITATIONS: None. FLUOROSCOPY TIME: FLUORO TIME: 2.1 minutes 16 images saved to PACS. FINDINGS: NEUROMUSCULAR COORDINATION OF SWALLOW: Normal. No aspiration. ESOPHAGEAL MOTILITY: Normal peristalsis. No esophageal spasm. ESOPHAGEAL MUCOSA: Normal mucosa without masses or ulceration. Moderately sized Zenker's diverticulu m is present. GASTRO-ESOPHAGEAL JUNCTION: Moderate sized hiatal hernia involving the stomach fundus is identified. Significant reflux to the level of the clavicle is seen throughout the study. STOMACH: Normal without masses or ulcerations. GASTRIC OUTLET: No delay in emptying. Normal pylorus. DUODENAL BULB: Normal distention. No spasm or ulceration. DUODENUM: Mucosa normal. No extrinsic masses or malrotation. PROXIMAL SMALL BOWEL: Mucosa normal. No extrinsic masses or malrotation. NON-GI TRACT STRUCTURES: No significant finding. OTHER: No other significant finding. IMPRESSION: MODERATELY SIZED HIATAL HERNIA. SIGNIFICANT GASTROESOPHAGEAL REFLUX SEEN THROUGHOUT THE STUDY. MODERATE ZENKER'S DIVERTICULUM PRESENT COMMENT: NONE Quality ID 145: Final reports for procedures using fluoroscopy that document radiation exposure elenita crys, or exposure time and number of fluorographic images (if radiation exposure indices are not avail able) TECHNICAL DOCUMENTATION: JOB ID: [id number]- All Rights Reserved Reading location - IP/workstation name: [email or web address]
== END ==
LOC: RAD 08:20
PROVIDERS: ATTEND Internal Medicine Gastroenterology
DX: K44.9 Diaphragmatic hernia without obstruction or gangrene (principal)
CPT/HCPCS: 74247

== ENCOUNTER → 2019-06-20 | Outpatient (CLI) | payer MEDICARE ==
--- NOTE | 2019-06-20 12:02 | RADIOLOGY REPORT (SQ) ---
EXAM DESCRIPTION: CT CHEST WITHOUT COMPLETED DATE/TIME: 06/20/2019 9:58 am REASON FOR STUDY: (R91.1)SOLITARY PULMONARY NODULE R91.1 SOLITARY PULMONARY NODULE COMPARISON: 01/16/2019 TECHNIQUE: CT scan performed of the chest without intravenous contrast. Images reviewed with lung, soft tissue and bone windows. Reconstructed coronal and sagittal MPR images reviewed. All images st ored on PACS. All CT scanners at this facility use dose modulation, iterative reconstruction, and/or weight based d osing when appropriate to reduce radiation dose to as low as reasonably achievable (ALARA). [facility]: Dose Right [facility]: CareDose [facility]: Dose Right [facility]: Teradose 4D [facility]: Smart Diaspora RADIATION DOSE: CT Rad equipment meets quality standard of care and radiation dose reduction techniq ues were employed. CTDIvol: 11.1 mGy. DLP: 484 mGy-cm. mGy. LIMITATIONS: No technical limitations. FINDINGS: LUNGS AND PLEURA: There are stable pleural and parenchymal changes throughout both lung fi elds most marked in the upper lobes. There is bronchiectasis. There confluent densities in the righ t upper lobe best demonstrated on series 2, image 20 and in the left upper lobe best demonstrated on series 2, image 22. There is a 2nd confluent density in the right base best demonstrated on series 4 , image 56. There is been no appreciable change in size or configuration when compared to previous e xam no obvious new lesions. HILAR AND MEDIASTINAL STRUCTURES: The esophagus is dilated with an air-fluid level. This is unchange d. There are small mediastinal nodes. Some are calcified. HEART AND VASCULAR STRUCTURES: No aneurysm. No pericardial effusion. UPPER ABDOMEN: Small hiatal hernia. THYROID AND OTHER SOFT TISSUES: No masses. No adenopathy. BONES: No significant finding. HARDWARE: None in the chest. OTHER: No other significant findings. IMPRESSION: Severe bilateral bronchiectasis with confluent densities at several sites as described m ost likely scar. No significant change or configuration when compared to previous examination. Stable dilated esophagus with air-fluid level. TECHNICAL DOCUMENTATION: JOB ID: [id number] Quality ID # 436: Final reports with documentation of one or more dose reduction techniques (e.g., Au tomated exposure control, adjustment of the mA and/or kV according to patient size, use of iterative reconstruction technique) 2010 [employer]- All Rights Reserved Reading location - IP/workstation name: [email or web address]
== END ==
LOC: RAD 09:41
PROVIDERS: ATTEND Internal Medicine Critical Care Medicine
DX: J84.9 Interstitial pulmonary disease, unspecified (principal); R91.1 Solitary pulmonary nodule; J47.9 Bronchiectasis, uncomplicated; K44.9 Diaphragmatic hernia without obstruction or gangrene
CPT/HCPCS: 71250

== ENCOUNTER 2019-06-26 07:24 | Day surgery (SDC) | payer MEDICARE ==
[2019-06-26 11:04] VITALS: BP 92/71
--- NOTE | 2019-06-26 12:58 | Operative Report ---
Operative Report DATE OF SURGERY: 06/26/19 PREOPERATIVE DIAGNOSIS: Anemia rule out GI bleed POSTOPERATIVE DIAGNOSIS: Right colon inflammation status post biopsy. Internal hemorrhoids OPERATION: Colonoscopy with biopsy SURGEON: [place] [employer]ING ANESTHESIA: LMAC TISSUE REMOVED OR ALTERED: As noted above COMPLICATIONS: None. ESTIMATED BLOOD LOSS: None. INTRAOPERATIVE FINDINGS: As noted above. PROCEDURE: The risks, benefits and alternatives of the procedure including the risk of bleeding, perforation requiring surgery have been explained to the patient in detail and informed consent has been obtained. Patient is taken back to the endoscopy suite and placed in the left, lateral decubital position. Timeout was called. Propofol medication is administered. Rectal examination is done which did not reveal any masses, tears or fissures. An Olympus videoscope was inserted into the patient's rectum. The scope was then carefully advanced all the way to the cecum. The cecum was identified by the usual anatomical landmarks including the ileocecal valve as well as the appendiceal office. Photodocumentation is obtained. The scope was then sequentially pulled back via the various segments of the colon including the ascending colon, hepatic flexure, transverse colon, splenic flexure, descending colon and finally into the rectosigmoid portions of the colon. Retroflexion maneuvers performed. Patient tolerated the procedure well. No immediate postprocedure comp occasions are noted. Patient is discharged in good condition. Discharge date 06/26/2019. Discharge diet: Regular. Discharge activity: Regular. 2 to 3-week follow-up to discuss findings. Patient is instructed to call the office or proceed to the emergency room should there be any further problems or questions. Wait on the pathology.
== END 2019-06-26 09:40 | disposition home or self-care (01) ==
LOC: END 07:24
PROVIDERS: ATTEND Internal Medicine Gastroenterology
DX: K52.9 Noninfective gastroenteritis and colitis, unspecified (principal); K64.8 Other hemorrhoids; E78.5 Hyperlipidemia, unspecified; E03.9 Hypothyroidism, unspecified; M10.9 Gout, unspecified; D50.9 Iron deficiency anemia, unspecified; Z79.51 Long term (current) use of inhaled steroids; Z79.899 Other long term (current) drug therapy
CPT/HCPCS: 88305 ×2; 00811; J2704; 45380; 811

== ENCOUNTER → 2019-07-18 | Outpatient (CLI) | payer MEDICARE | LOC: OD 07:58 | PROVIDERS: ATTEND Family Medicine | DX: E03.9 Hypothyroidism, unspecified (principal) | CPT/HCPCS: 36415; 84443 ==

== ENCOUNTER → 2019-12-21 | Outpatient (CLI) | payer MEDICARE ==
[2019-12-21 12:16] LABS: ALBUMIN 4.5 g/dL (3.5-5.0); ALKALINE PHOSPHATASE 66 U/L (38-126); ANION GAP 10 (5-19); ASPARTATE AMINO TRANSFERASE 27 U/L (17-59); BILIRUBIN,DIRECT 0.1 mg/dL (0.0-0.4); BILIRUBIN,TOTAL 0.6 mg/dL (0.2-1.3); BLOOD UREA NITROGEN 18 mg/dL (7-20); CALCIUM 9.6 mg/dL (8.4-10.2); CARBON DIOXIDE 28 mmol/L (22-30); CHLORIDE 102 mmol/L (98-107); CHOLESTEROL 148.94 mg/dL (0-200); GLUCOSE 90 mg/dL (75-110); POTASSIUM 4.5 mmol/L (3.6-5.0); TOTAL PROTEIN 8.7 g/dL (6.3-8.2); TRIGLYCERIDES 120 mg/dL (<150)
[2019-12-21 12:27] LABS: DIRECT LDL 58 mg/dL (<100)
== END ==
LOC: OD 10:32
PROVIDERS: ATTEND Family Medicine
DX: I10 Essential (primary) hypertension (principal); E03.9 Hypothyroidism, unspecified; E78.2 Mixed hyperlipidemia
CPT/HCPCS: 36415; 80053; 80061; 84443

== ENCOUNTER → 2020-01-04 | Outpatient (CLI) | payer MEDICARE ==
[2020-01-04 10:40] LABS: ALBUMIN 4.3 g/dL (3.5-5.0); ALKALINE PHOSPHATASE 72 U/L (38-126); ASPARTATE AMINO TRANSFERASE 27 U/L (17-59); BILIRUBIN,DIRECT 0.1 mg/dL (0.0-0.4); BILIRUBIN,TOTAL 0.6 mg/dL (0.2-1.3); TOTAL PROTEIN 8.4 g/dL (6.3-8.2)
== END ==
LOC: OD 07:56
PROVIDERS: ATTEND Family Medicine
DX: R77.8 Other specified abnormalities of plasma proteins (principal)
CPT/HCPCS: 36415; 80076

== ENCOUNTER → 2020-07-18 | Outpatient (CLI) | payer MEDICARE ==
--- NOTE | 2020-07-18 12:43 | RADIOLOGY REPORT (SQ) ---
EXAM DESCRIPTION: CT CHEST WITHOUT IMAGES COMPLETED DATE/TIME: 07/18/2020 10:38 am REASON FOR STUDY: R91.1 SOLITARY PULMONARY NODULE R91.1 SOLITARY PULMONARY NODULE COMPARISON: 06/20/2019 TECHNIQUE: CT scan performed of the chest without intravenous contrast. Images reviewed with lung, soft tissue and bone windows. Reconstructed coronal and sagittal MPR images reviewed. All images st ored on PACS. All CT scanners at this facility use dose modulation, iterative reconstruction, and/or weight based d osing when appropriate to reduce radiation dose to as low as reasonably achievable (ALARA). [facility]: Dose Right [facility]: CareDose [facility]: Dose Right [facility]: Teradose 4D [facility]: Smart Lipocalyx RADIATION DOSE: CT Rad equipment meets quality standard of care and radiation dose reduction techniq ues were employed. CTDIvol: 8.9 mGy. DLP: 370 mGy-cm. mGy. LIMITATIONS: No technical limitations. FINDINGS: LUNGS AND PLEURA: Severe bronchiectasis bilaterally. There are areas of confluent opacifi cation in each lung. There is no significant interval change. HILAR AND MEDIASTINAL STRUCTURES: There are calcified mediastinal nodes. There is a hiatal hernia. HEART AND VASCULAR STRUCTURES: No aneurysm. No pericardial effusion. UPPER ABDOMEN: No significant findings. Limited exam. THYROID AND OTHER SOFT TISSUES: No masses. No adenopathy. BONES: No significant finding. HARDWARE: None in the chest. OTHER: No other significant findings. IMPRESSION: Severe bronchiectasis and areas of confluent opacification in each lung. No significant interval change. Hiatal hernia. TECHNICAL DOCUMENTATION: JOB ID: [id number] Quality ID # [id number]: Final reports with documentation of one or more dose reduction techniques (e.g., Au tomated exposure control, adjustment of the mA and/or kV according to patient size, use of iterative reconstruction technique) 2010 [employer]- All Rights Reserved Reading location - IP/workstation name: [email or web address]
== END ==
LOC: RAD 10:20
PROVIDERS: ATTEND Internal Medicine Critical Care Medicine
DX: R91.1 Solitary pulmonary nodule (principal); R91.8 Other nonspecific abnormal finding of lung field; J84.9 Interstitial pulmonary disease, unspecified; J47.9 Bronchiectasis, uncomplicated; K44.9 Diaphragmatic hernia without obstruction or gangrene
CPT/HCPCS: 71250

== ENCOUNTER → 2020-12-04 | Outpatient (CLI) | payer MEDICARE ==
[2020-12-04 15:19] LABS: ALBUMIN 4.3 g/dL (3.5-5.0); ALKALINE PHOSPHATASE 60 U/L (38-126); ANION GAP 8 (5-19); ASPARTATE AMINO TRANSFERASE 27 U/L (17-59); BILIRUBIN,DIRECT 0.3 mg/dL (0.0-0.4); BILIRUBIN,TOTAL 0.6 mg/dL (0.2-1.3); BLOOD UREA NITROGEN 16 mg/dL (7-20); CALCIUM 9.4 mg/dL (8.4-10.2); CARBON DIOXIDE 30 mmol/L (22-30); CHLORIDE 100 mmol/L (98-107); CHOLESTEROL 143.89 mg/dL (0-200); GLUCOSE 103 mg/dL (75-110); POTASSIUM 3.7 mmol/L (3.6-5.0); TOTAL PROTEIN 8.2 g/dL (6.3-8.2); TRIGLYCERIDES 123 mg/dL (<150)
[2020-12-04 15:30] LABS: DIRECT LDL 51 mg/dL (<100)
== END ==
LOC: OD 13:20
PROVIDERS: ATTEND Family Medicine
DX: E55.9 Vitamin D deficiency, unspecified (principal); E78.5 Hyperlipidemia, unspecified; I10 Essential (primary) hypertension; E03.9 Hypothyroidism, unspecified
CPT/HCPCS: 36415; 80053; 80061; 82306; 84443